=== PATIENT | male | born 1970 | race Caucasian/White ===

== ENCOUNTER 2016-03-07 07:37 | Emergency (ER) | payer OTHER ==
[2016-03-07 07:43] VITALS: BP 148/111; PULSE 85; TEMP 97.6; BMI 37.6
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
== END 2016-03-07 08:41 | disposition home or self-care (01) ==
LOC: SUPCPDRO 07:37 → JER 07:37 → JERFT 07:37
DX: K94.09 Other complications of colostomy (principal); I10 Essential (primary) hypertension; E11.9 Type 2 diabetes mellitus without complications; Z79.84 Long term (current) use of oral hypoglycemic drugs; I25.2 Old myocardial infarction; Z95.5 Presence of coronary angioplasty implant and graft; F43.10 Post-traumatic stress disorder, unspecified; F31.9 Bipolar disorder, unspecified
CPT/HCPCS: 99281-25

== ENCOUNTER 2016-07-15 06:50 | Emergency (ER) | payer OTHER ==
[2016-07-15 07:03] VITALS: BP 150/99; PULSE 111; TEMP 98; BMI 40.1
--- NOTE | 2016-07-15 07:35 | PDOC ---
History of Present Illness - General Chief Complaint: Constipation Stated Complaint: ABD PAIN Time Seen by Provider: 07/15/16 07:10 History Source: Patient Exam Limitations: No Limitations - History of Present Illness Initial Comments: 46 y/o M with PMH of DM, HTN, HLD, ventral hernia, irreversible colostomy s/p bowel perforation presents to ER with c/o constipation over the last 3 days. Pt has noticed over the last 3 days he has not had only minimal white mucus in his colostomy bag and no fecal matter. He has also not had any gas emptying into his colostomy bag as he usually does over these last 3 days as well. He has had no nausea or vomiting, and no loss of appetite. This morning (1 hour ago) he noticed the stoma of his colostomy (located over his existing hernia) protruding more than usual and opening has closed somewhat this morning with skin and prompted him to come to the ER. He now has pain around his ostomy site and at its worst was a 10/10 and is currently a 5/10. He denies fevers, chills, chest pain, sob, headache, peripheral swelling, recent travel, sick contacts. 1 week ago he was seen at [facility] and was found to have a "heart attack" and placed under observation but patient signed out AMA. Pt had appointment with form drafter yesterday which he missed because of his bowel issues. Currently pt has no chest pain, no pain with exertion, chest pressure, sob. PCP: Dr. Neisha Lafleur Pt is on parole and has stated he is not to be given any narcotics/controlled substances. Past History - Past Medical History Allergies/Adverse Reactions: Allergies Allergy/AdvReac Type Severity Reaction Status Date / Time shellfish derived Allergy Severe anaphylaxis Verified 03/07/16 07:40 Penicillins Allergy Verified 03/07/16 07:40 Home Medications: Ambulatory Orders Lisinopril [Prinivil] 20 mg PO DAILY 08/29/12 Metformin HCl [Riomet] 1,000 mg PO BID 08/29/12 Metoprolol Tartrate [Lopressor -] 25 mg PO DAILY 08/29/12 Atorvastatin Ca [Lipitor] 20 mg PO HS 07/15/16 Benztropine Mesylate [Cogentin -] 1 mg PO DAILY 07/15/16 Risperidone [Risperdal] 1 mg PO DAILY 07/15/16 Cardiac Disorders: Yes (AORTIC STENOSIS. mi x 2.) Diabetes: Yes GI Disorders: Yes (COLOSTOMY) HTN: Yes Psychiatric Problems: Yes (bipolar, ptsd.) - Surgical History Abdominal Surgery: Yes (COLOSTOMY) Cardiac Surgery: Yes (STENTS) GI Surgery: Yes - Immunization History Immunization Up to Date: Yes - Psycho/Social/Smoking Cessation Hx Anxiety: No Suicidal Ideation: No Smoking Status: No Smoking History: Never smoked Have you smoked in the past 12 months: No Number of Cigarettes Smoked Daily: 0 Information on smoking cessation initiated: No Hx Alcohol Use: No Drug/Substance Use Hx: No Substance Use Type: None Hx Substance Use Treatment: No Review of Systems - Review of Systems Able to Perform ROS?: Yes Comments:: CONSTITUTIONAL: Absent: fever, chills, diaphoresis, generalized weakness, loss of appetite HEENT: Absent: throat pain, throat swelling, difficulty swallowing, visual Changes CARDIOVASCULAR: Absent: chest pain, syncope, palpitations, irregular heart rate, peripheral edema RESPIRATORY: Absent: cough, shortness of breath, dyspnea with exertion, orthopnea GASTROINTESTINAL: +abdominal pain, abdominal distension at site of colostomy, constipation Absent: nausea, vomiting, diarrhea GENITOURINARY: +chronic hesitancy Absent: dysuria, frequency, urgency, flank pain, genital pain NEUROLOGIC: Absent: headache, dizziness, unsteady gait PSYCHIATRIC: Absent: anxiety, depression, suicidal or homicidal ideation, hallucinations. *Physical Exam - Vital Signs Last Vital Signs Temp Pulse Resp BP Pulse Ox 98.0 F 111 H 22 150/99 99 07/15/16 07:01 07/15/16 07:01 07/15/16 07:01 07/15/16 07:01 07/15/16 07:01 - Physical Exam Comments: GENERAL: Well developed, well nourished. Awake and alert. In no acute distress. HEENT: Normocephalic. EOMI. No conjunctival pallor. Sclera are non-icteric NECK: Supple. Full ROM. CARDIOVASCULAR: Regular rate and rhythm. No murmurs, rubs, or gallops. PULMONARY: No evidence of respiratory distress. Lungs clear to auscultation bilaterally. No wheezing, rales or rhonchi. ABDOMINAL: +obese, colostomy located in LLQ. Stoma is pink, no signs of necrosis. Skin around stoma pink, likely from irritation. +LLQ tenderness with palpation (in area around colostomy). No fecal matter in colostomy bag. Hypoactive bowel sounds. Pain with insertion of tumi syringe and pain with flushing of saline into stoma via syringe. Soft. No rebound or guarding. No organomegaly. MUSCULOSKELETAL No bony deformities or tenderness. No CVA tenderness. EXTREMITIES: No edema. No calf tenderness. SKIN: As described in abdominal exam above. Warm and dry. Normal capillary refill. No rashes. No jaundice. NEUROLOGICAL: Alert, awake, appropriate. PSYCHIATRIC: Cooperative. Good eye contact. Appropriate mood and affect. Heart Score/ECG Review - ECG Intrepretation Comment:: SInus tachycardia @ 106 bpm Septal infarct, age undetermined No ST segment changes QTc 435 ms ED Treatment Course - LABORATORY CBC & Chemistry Diagram: 07/15/16 07:41 07/15/16 07:41 Medical Decision Making - Medical Decision Making 07/15/16 07:49 Will work up patient for obstruction and stricture at this time. CBCD, CMP, abd/ pelvis ct with and without contrast (plus oral contrast ordered). Pain control with IV ofirmev 1g. Pt is on parole and has stated he is not to be given any narcotics/controlled substances. 07/15/16 10:02 Pt completed drinking oral contrast approximately 1 hour ago. At this time pt has had filling of colostomy with fecal matter, brown in color, with no gross blood seen. Pt states the stool was normal in consistency like it usually is at home. 07/15/16 10:22 Pt's pain has much improved s/p bowel movement. Pt's abdomen also non-tender, non-distended around area of ostomy now. Pt to be discharged and to see primary care physician. Pt also to f/u with colo- rectal surgeon for ostomy review and possible further management for revision. Pt will be given both Dr. Raza's and Dr. Robles's contact information. *DC/Admit/Observation/Transfer Diagnosis at time of Disposition: Impaction of intestine - Discharge Dispostion Disposition: HOME Condition at time of disposition: Stable Admit: No - Referrals Referrals: Neisha Lafleur MD [Primary Care Provider] - Terrence Raza MD [Staff Physician] - Daryn Wood MD [Staff Physician] - - Patient Instructions Printed Discharge Instructions: DI for Fecal Impaction, DI for Constipation, How to Care for Your Colostomy or Ileostomy Additional Instructions: You will need to follow up with your primary care physician after this emergency room visit. You will also need to see a surgeon to further evaluate your colostomy/ostomy and to check if further revision is necessary. You should call Dr. Raza and see if he is able to do so. If he is not, you can call Dr. Wood for further management of your colostomy. If you symptoms worsen, come back to the emergency room.
[2016-07-15 07:50] LABS: BASOPHIL 0.4 % (0-2.0); EOSINOPHIL 4.4 % (0-4.5); MCH 29.6 pg (25.7-33.7); MCHC 33.8 g/dl (32.0-35.9); MEAN CELL VOLUME 87.7 fl (80-96); MEAN PLT VOLUME 9.7 fl (7.5-11.1); NEUTROPHILS 55.6 % (42.8-82.8); PLATELET COUNT 163 K/MM3 (134-434); RDW 13.4 % (11.9-15.9)
[2016-07-15] MEDS ORDERED: SODIUM CHLORIDE 1,000 ML IV STA (07:53)
[2016-07-15] MEDS ORDERED: ACETAMINOPHEN 1000 MG/100 ML VIAL (NON FORMULARY) IVPB ONE (07:53)
[2016-07-15] MEDS ORDERED: ACETAMINOPHEN INJECTION 100 ML IVPB ONE (08:12)
[2016-07-15 08:18] LABS: ALBUMIN 3.7 g/dl (3.4-5.0); ALK PHOS 65 U/L (45-117); ANION GAP 10 (8-16); BILIRUBIN,TOTAL 0.6 mg/dL (0.2-1.0); CALCIUM 9.7 mg/dL (8.5-10.1); CO2 27 mmol/L (21-32); COCKROFT - GAULT 231.83; CREATININE 0.7 mg/dL (0.7-1.3); GLUCOSE,RANDOM 167 mg/dL (74-106); SGOT/AST 37 U/L (15-37); SGPT/ALT 38 U/L (12-78); TOT PROT 7.7 g/dl (6.4-8.2)
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
--- NOTE | 2016-07-16 16:33 | EKG ---
Test Reason : Blood Pressure : / mmHG Vent. Rate : 106 BPM Atrial Rate : 106 BPM P-R Int : 176 ms QRS Dur : 086 ms QT Int : 328 ms P-R-T Axes : 065 049 036 degrees QTc Int : 435 ms SINUS TACHYCARDIA SEPTAL INFARCT , AGE UNDETERMINED ABNORMAL ECG WHEN COMPARED WITH ECG OF 01-DEC-2013 09:33, NONSPECIFIC T WAVE ABNORMALITY HAS REPLACED INVERTED T WAVES IN INFERIOR LEADS Confirmed by HAYLEY OWEN, YADIEL ([id number]) on 07/16/2016 4:32:29 PM Referred By: Confirmed By:YADIEL HARDY MD
== END 2016-07-15 11:05 | disposition home or self-care (01) ==
LOC: JER 06:50
PROC: 3E033NZ Introduction of Analgesics, Hypnotics, Sedatives into Peripheral Vein, Percutaneous Approach (ICD-10-PCS; principal; 2016-07-15)
PROC: 3E0337Z Introduction of Electrolytic and Water Balance Substance into Peripheral Vein, Percutaneous Approach (ICD-10-PCS; 2016-07-15)
DX: K56.49 Other impaction of intestine (principal); Z93.3 Colostomy status; E11.9 Type 2 diabetes mellitus without complications; I10 Essential (primary) hypertension; F31.9 Bipolar disorder, unspecified; E78.5 Hyperlipidemia, unspecified; I25.2 Old myocardial infarction
CPT/HCPCS: 36415; 80053; 85025; 93005; 93010; 96361; 96374; 99282-25

== ENCOUNTER 2016-08-05 06:26 | Observation (INO) | payer OTHER ==
[2016-08-05 06:30] VITALS: BMI 41.5
--- NOTE | 2016-08-05 06:48 | PDOC ---
History of Present Illness - General Stated Complaint: CHEST PAIN Time Seen by Provider: 08/05/16 06:33 History Source: Patient Exam Limitations: No Limitations - History of Present Illness Initial Comments: 08/05/16 06:43 46-year-old male presents to the emergency room with complaints of chest pain since last night. Patient states initially pain was 10 out of 10 describing it as a chest tightness in the left side of his chest chest wall. Patient states pain has subsided to a 3 out of 10 he took a baby aspirin approximately an hour prior to arrival. Patient states history of CAD with PA back in 2011 along with 2 stents placed at that time. 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 patient states is followed by Dr. Langley for his hypertension, dyslipidemia and diabetes. Patient denies fever, chills, shortness of breath, cough, palpitations, dizziness, diaphoresis, abdominal pain, or nausea. Patient also with history of colostomy bag which he has no complaints of presently. Presenting Symptoms: Chest Pain Timing/Duration: reports: constant, changing over time (lessened since 11pm.) Severity/Quality: reports: mild, tightness Location: reports: substernal Chest Pain Radiation: reports: no radiation Activities at Onset: reports: none Prior Chest Pain/Cardiac Workup: reports: Cardiac Cath, Heart Attack Nitro Today/Relief: Yes: no nitro taken today Aspirin Received prior to arrival (Core Measure): Yes: 325 mg x 1, provided at home Associated Symptoms: Yes: Chest Pain/pressure Past History - Travel Traveled outside of the country in the last 30 days: No Close contact w/someone who was outside of country & ill: No - Past Medical History Allergies/Adverse Reactions: Allergies Allergy/AdvReac Type Severity Reaction Status Date / Time shellfish derived Allergy Severe anaphylaxis Verified 08/05/16 06:30 Iodine and Iodide Containing Allergy Verified 08/05/16 06:31 Produc Penicillins Allergy Verified 08/05/16 06:30 Home Medications: Ambulatory Orders Lisinopril [Prinivil] 20 mg PO DAILY 08/29/12 Metformin HCl [Riomet] 1,000 mg PO BID 08/29/12 Metoprolol Tartrate [Lopressor -] 25 mg PO DAILY 08/29/12 Atorvastatin Ca [Lipitor] 20 mg PO HS 07/15/16 Benztropine Mesylate [Cogentin -] 1 mg PO DAILY 07/15/16 Risperidone [Risperdal] 1 mg PO DAILY 07/15/16 Cardiac Disorders: Yes (AORTIC STENOSIS. mi x 2.) Diabetes: Yes GI Disorders: Yes (COLOSTOMY) HTN: Yes Psychiatric Problems: Yes (bipolar, ptsd.) - Surgical History Abdominal Surgery: Yes (COLOSTOMY) Cardiac Surgery: Yes (STENTS) GI Surgery: Yes - Immunization History Immunization Up to Date: Yes - Psycho/Social/Smoking Cessation Hx Anxiety: No Suicidal Ideation: No Smoking Status: No Smoking History: Former smoker Have you smoked in the past 12 months: No Number of Cigarettes Smoked Daily: 0 Information on smoking cessation initiated: No Hx Alcohol Use: No Drug/Substance Use Hx: No Substance Use Type: None Hx Substance Use Treatment: No Patient Lives Alone: No Lives with/in: spouse/[place] Cardiac Specific PMH - Complaint Specific PMHX Cardiac Stent: Yes Review of Systems - Review of Systems Able to Perform ROS?: Yes Constitutional: No: Symptoms Reported HEENTM: No: Symptoms Reported Respiratory: No: Symptoms reported Cardiac (ROS): Yes: Chest Tightness. No: Lightheadedness, Palpitations, Syncope ABD/GI: No: Symptoms Reported : No: Symptoms Reported Musculoskeletal: No: Symptoms Reported Integumentary: No: Symptoms Reported Neurological: No: Symptoms reported Endocrine: No: Symptoms Reported Hematologic/Lymphatic: No: Symptoms Reported *Physical Exam - Vital Signs Last Vital Signs Temp Pulse Resp BP Pulse Ox 107 H 20 174/107 97 08/05/16 06:28 08/05/16 06:28 08/05/16 06:28 08/05/16 06:28 - Physical Exam General Appearance: Yes: Nourished, Appropriately Dressed. No: Apparent Distress HEENT: positive: EOMI, SHIRLEY. negative: Pale Conjunctivae Respiratory/Chest: positive: Lungs Clear, Normal Breath Sounds. negative: Respiratory Distress, Accessory Muscle Use Cardiovascular: positive: Regular Rhythm, Regular Rate, Tachycardia. negative: Murmur Vascular Pulses: Dorsalis-Pedis (R): 2+, Doralis-Pedis (L): 2+ Gastrointestinal/Abdominal: positive: Soft, Other (llq colostomy bag present). negative: Tenderness Musculoskeletal: negative: CVA Tenderness Extremity: positive: Normal Capillary Refill. negative: Pedal Edema Integumentary: positive: Normal Color, Warm, Moist Neurologic: positive: Motor Strength 5/5 (ambulatory) Heart Score/ECG Review - History History: Slightly suspicious - Electrocardiogram EKG: Normal - Age Age: 45-65 - Risk Factors Risk Factors Heart Score: Yes Hx Hypercholesterolemia, Yes Hx Hypertension, Yes Hx Diabetes, Yes Smoking History Based on the list above the patient has:: >/=3 risk factors or Hx atherosclerotic disease - Troponin Troponin: </= normal limit - Score Heart Score - Total: 3 - ECG Intrepretation Rhythm: Regular Rhythm (rate 103, no ST elevation/depression noted) - ECG Impressions Tachycardia: Sinus ED Treatment Course - LABORATORY CBC & Chemistry Diagram: 08/05/16 06:55 08/05/16 06:55 - ADDITIONAL ORDERS Additional order review: Laboratory Results 08/05/16 08/05/16 08/05/16 06:55 06:55 06:55 INR 0.92 D-Dimer < 200 Sodium 139 Potassium 4.1 Chloride 100 Carbon Dioxide 28 Anion Gap 11 BUN 11 D Creatinine 0.7 Creat Clearance w eGFR > 60 Random Glucose 227 H D Calcium 9.7 Magnesium 1.6 L Total Bilirubin 0.5 AST 26 D ALT 31 Alkaline Phosphatase 63 Creatine Kinase 162 Creatine Kinase Index 1.0 CK-MB (CK-2) 1.632 CK-MB (CK-2) Rel Index Cancelled Troponin I < 0.02 B-Natriuretic Peptide < 5.00 L Total Protein 7.9 Albumin 3.7 08/05/16 06:55 RBC 4.69 MCV 87.9 MCHC 33.7 RDW 13.1 MPV 10.2 Neutrophils % 53.4 Lymphocytes % 31.6 Monocytes % 8.3 Eosinophils % 6.4 H Basophils % 0.3 - RADIOLOGY Radiology Studies Ordered: Category Date Time Status CHEST X-RAY PORTABLE* [RAD] Stat Radiology 08/05/16 06:40 Completed - Medications Given in the ED: ED Medications Discontinued Medications Generic Name Dose Route Start Last Admin Trade Name Freq PRN Reason Stop Dose Admin Magnesium Sulfate 1 gm 08/05/16 08:38 08/05/16 09:27 Magnesium Sulfate IVPB 08/05/16 08:39 1 gm ONCE ONE Administration Medical Decision Making - Medical Decision Making 08/05/16 06:46 Patient with complaint of chest tightness since last night at around 11 PM. Patient states the pain has subsided to a minimum and took 2 baby aspirin. Patient states takes his medication for his cholesterol hypertension and diabetes. Patient states history of PTSD and anxiety but denies any recent change in medication. On exam patient had no significant findings except for tachycardia at 103. Patient is concerning for ACS, PE. Patient ordered for cardiac workup including a d-dimer. patient received 2 baby aspirin prior to arrival. 08/05/16 09:00 Laboratory Tests 08/05/16 08/05/16 08/05/16 06:55 06:55 06:55 WBC 5.9 Hgb 13.9 Hct 41.2 Plt Count 164 Neutrophils % 53.4 INR 0.92 D-Dimer < 200 Sodium 139 Potassium 4.1 Chloride 100 Carbon Dioxide 28 Anion Gap 11 BUN 11 D Creatinine 0.7 Random Glucose 227 H D Calcium 9.7 Magnesium 1.6 L Total Bilirubin 0.5 AST 26 D ALT 31 Troponin I < 0.02 B-Natriuretic Peptide < 5.00 L Patient ordered for 1 g of magnesium. Call placed to Dr. Lafleur for admission. 08/05/16 09:29 Dr. Lafleur here for consultation. Patient will be admitted to telemetry. He is recommending Dr. Porter for cardiology. Consultation will be placed. Patient also be ordered for an echocardiogram. Patient currently states chest pain is subsided 08/05/16 09:[address] Hart over the phone and is aware of consultation. *DC/Admit/Observation/Transfer Diagnosis at time of Disposition: Chest tightness - Discharge Dispostion Admit: Yes Decision to Admit order Date/Time: Decision to Admit Order Category Date Time Status Decision to Admit to Hospital Routine Admission 08/05/16 09:30 Active - Referrals Referrals: Neisha Lafleur MD [Primary Care Provider] -
[2016-08-05 07:19] LABS: BASOPHIL 0.3 % (0-2.0); EOSINOPHIL 6.4 % (0-4.5); MCH 29.7 pg (25.7-33.7); MCHC 33.7 g/dl (32.0-35.9); MEAN CELL VOLUME 87.9 fl (80-96); MEAN PLT VOLUME 10.2 fl (7.5-11.1); NEUTROPHILS 53.4 % (42.8-82.8); PLATELET COUNT 164 K/MM3 (134-434); RDW 13.1 % (11.9-15.9); WHITE BLOOD COUNT 5.9 K/mm3 (4.0-10.0)
[2016-08-05 07:36] LABS: INR 0.92 (0.82-1.09)
[2016-08-05 07:40] LABS: ALBUMIN 3.7 g/dl (3.4-5.0); ANION GAP 11 (8-16); CALCIUM 9.7 mg/dL (8.5-10.1); CO2 28 mmol/L (21-32); CREATININE 0.7 mg/dL (0.7-1.3); D-DIMER < 200 ng/ml (<200-235); GLUCOSE,RANDOM 227 mg/dL (74-106); MAGNESIUM 1.6 mg/dL (1.8-2.4); SGOT/AST 26 U/L (15-37); SGPT/ALT 31 U/L (12-78)
[2016-08-05 07:44] LABS: ALK PHOS 63 U/L (45-117); BILIRUBIN,TOTAL 0.5 mg/dL (0.2-1.0); TOT PROT 7.9 g/dl (6.4-8.2); TROPONIN I < 0.02 ng/ml (0.00-0.05)
--- NOTE | 2016-08-05 08:16 | PDOC ---
*Physical Exam - Vital Signs Last Vital Signs Temp Pulse Resp BP Pulse Ox 107 H 20 174/107 97 08/05/16 06:28 08/05/16 06:28 08/05/16 06:28 08/05/16 06:28 - Physical Exam General Appearance: Yes: Nourished HEENT: positive: Normal Voice Neck: positive: Trachea midline Respiratory/Chest: positive: Lungs Clear, Normal Breath Sounds. negative: Chest Tender, Respiratory Distress Cardiovascular: positive: Regular Rhythm, Regular Rate, S1, S2. negative: Edema , JVD Vascular Pulses: Dorsalis-Pedis (R): 2+, Doralis-Pedis (L): 2+ Gastrointestinal/Abdominal: positive: Normal Bowel Sounds, Flat, Soft. negative : Tender Musculoskeletal: positive: Normal Inspection. negative: CVA Tenderness Extremity: positive: Normal Capillary Refill, Normal Inspection, Normal Range of Motion Integumentary: positive: Normal Color, Dry, Warm Neurologic: positive: Fully Oriented, Alert, Normal Mood/Affect, Normal Response Heart Score/ECG Review #1 ECG reviewed & interpreted by me at: 07:00 General ECG Interpretation: Sinus Rhythm, Normal Rate (103 sinus tachy), Normal Intervals, No acute ischemic changes - ECG Intrepretation Rhythm: Regular Rhythm - [place]: Normal ED Treatment Course - LABORATORY CBC & Chemistry Diagram: 08/05/16 06:55 08/05/16 06:55 - ADDITIONAL ORDERS Additional order review: Laboratory Results 08/05/16 08/05/16 06:55 06:55 Sodium 139 Potassium 4.1 Chloride 100 Carbon Dioxide 28 Anion Gap 11 BUN 11 D Creatinine 0.7 Creat Clearance w eGFR > 60 Random Glucose 227 H D Calcium 9.7 Magnesium 1.6 L Total Bilirubin 0.5 AST 26 D ALT 31 Alkaline Phosphatase 63 Creatine Kinase 162 CK-MB (CK-2) Rel Index Cancelled Troponin I < 0.02 B-Natriuretic Peptide < 5.00 L Total Protein 7.9 Albumin 3.7 08/05/16 06:55 RBC 4.69 MCV 87.9 MCHC 33.7 RDW 13.1 MPV 10.2 Neutrophils % 53.4 Lymphocytes % 31.6 Monocytes % 8.3 Eosinophils % 6.4 H Basophils % 0.3 Medical Decision Making - Medical Decision Making 08/05/16 08:11 46 yo M with h/o HTN DM CAD stents most recent stress 2011 here wtih c/o chest pain. did not have chest pain with prior MA. today has substernal, left sided chest pain. not pleuritic no assoc leg swelling, no f/c no cough. no h/o pe or dvt. took two asa prior to arrival. pt states pain improved. on exam awake alert lungs clear heart RRR no mr/g/. abd soft NT. ext WWP no edema. pulses symmetric plan: ro ACS, PE, cxr ekg [facility] admit to tele r/o acs will d/w dr boyce pt seen and examined, and plan discussed with caring ORLIN Mckinney, agree with her plan. *DC/Admit/Observation/Transfer - Referrals Referrals: Neisha Lafleur MD [Primary Care Provider] -
[2016-08-05] MEDS ORDERED: MAGNESIUM SULF 50% (8.12 MEQ/2 ML-1 GM VIAL) IVPB ONE (08:38)
[2016-08-05] MEDS ORDERED: MAGNESIUM SULF 50% (8.12 MEQ/2 ML-1 GM VIAL) ONE (09:17)
--- NOTE | 2016-08-05 09:55 | CON.CARD ---
Consult Consult Specialty:: Cardiology Referred by:: Neisha Lafleur MD Reason for Consultation:: Chest pain - History of Present Illness Chief Complaint: Chest pain History of Present Illness: 46-year-old male h/o HTN, chol, DM. schizophrenia, CAD s/p OR, PCI (stent), angina pectoris, post-colostomy bad presents to the emergency room with complaints of left-sided chest pain without associated dyspnea, palpitations, near or true syncope, orthopnea, PND or LE edema, f/u has been interrupted by episodes of incarceration. - History Source History Provided By: Patient Limitations to Obtaining History: No Limitations - Past Medical History Cardio/Vascular: Yes: CAD, HTN, Hyperlipdemia, OR Endocrine: Yes: Diabetes Mellitus - Past Surgical History Past Surgical History: Yes: Stent - Alcohol/Substance Use Hx Alcohol Use: No - Smoking History Smoking history: Former smoker Have you smoked in the past 12 months: No Aproximately how many cigarettes per day: 0 Home Medications - Allergies Allergies/Adverse Reactions: Allergies Allergy/AdvReac Type Severity Reaction Status Date / Time shellfish derived Allergy Severe anaphylaxis Verified 08/05/16 06:30 Iodine and Iodide Containing Allergy Verified 08/05/16 06:31 Produc Penicillins Allergy Verified 08/05/16 06:30 - Home Medications Home Medications: Ambulatory Orders Lisinopril [Prinivil] 20 mg PO DAILY 08/29/12 Metformin HCl [Riomet] 1,000 mg PO BID 08/29/12 Metoprolol Tartrate [Lopressor -] 25 mg PO DAILY 08/29/12 Atorvastatin Ca [Lipitor] 20 mg PO HS 07/15/16 Benztropine Mesylate [Cogentin -] 1 mg PO DAILY 07/15/16 Risperidone [Risperdal] 1 mg PO DAILY 07/15/16 Review of Systems - Review of Systems Cardiovascular: reports: Chest Pain Vital Signs: Vital Signs Temperature Pulse Rate 107 H 08/05/16 06:28 Respiratory Rate 20 08/05/16 06:28 Blood Pressure 174/107 08/05/16 06:28 O2 Sat by Pulse Oximetry (%) 97 08/05/16 06:28 Constitutional: Yes: No Distress, Calm Neck: Yes: Supple Respiratory: Yes: Regular, CTA Bilaterally Gastrointestinal: Yes: Normal Bowel Sounds, Soft Cardiovascular: Yes: Regular Rate and Rhythm JVD: No Carotid Bruit: No Heart Sounds: Yes: S1, S2 Edema: No - Other Data Labs, Other Data: CBC, BMP 08/05/16 06:55 08/05/16 06:55 INR, PTT INR 0.92 (0.82-1.09) 08/05/16 06:55 Troponin, BNP 08/05/16 06:55 Troponin I < 0.02 B-Natriuretic Peptide < 5.00 L Troponin, BNP 08/05/16 06:55 Troponin I < 0.02 B-Natriuretic Peptide < 5.[address] @ 103 [facility] Imaging - Results Chest X-ray: Report Reviewed (NAD) Problem List - Problems (1) Chest tightness Code(s): R07.89 - OTHER CHEST PAIN (2) Hypertension Code(s): I10 - ESSENTIAL (PRIMARY) HYPERTENSION Qualifiers: Hypertension type: essential hypertension Qualified Code(s): I10 - Essential (primary) hypertension (3) Coronary artery disease Code(s): I25.10 - ATHSCL HEART DISEASE OF [place] CORONARY ARTERY W/O ANG PCTRS Qualifiers: Coronary Disease-Associated Artery/Lesion type: [place] artery [place] vs. transplanted heart: [place] heart Associated angina: without angina Qualified Code(s): I25.10 - Atherosclerotic heart disease of [place] coronary artery without angina pectoris (4) S/P coronary artery stent placement Code(s): Z95.5 - PRESENCE OF CORONARY ANGIOPLASTY IMPLANT AND GRAFT (5) Old myocardial infarction Code(s): I25.2 - OLD MYOCARDIAL INFARCTION (6) Hyperlipidemia Code(s): E78.5 - HYPERLIPIDEMIA, UNSPECIFIED Qualifiers: Hyperlipidemia type: pure hypercholesterolemia Qualified Code(s): E78.00 - Pure hypercholesterolemia, unspecified; E78.0 - Pure hypercholesterolemia (7) Diabetes mellitus Code(s): E11.9 - TYPE 2 DIABETES MELLITUS WITHOUT COMPLICATIONS Qualifiers: Diabetes mellitus type: type 2 (8) S/P colostomy Code(s): Z93.3 - COLOSTOMY STATUS Assessment/Plan A: Chest pain syndrome with underlying h/o CAD s/p PCI (stent), angina pectoris 2. HTN/HCVD 3. Hyperlipidemia 4. Type 2 DM 5. Schizophrenia P:1. Ruling out for OR, check TSH, lipid, Ha1c 2. Echocardiogram to assess ventricular and valve function, nuc stress to r/o ischemia 3. Continue lisinopril 20 qd, Toprol XL 25 qd, Lipitor 20 qhs, ASA 81 qd with uptitration has hemodynamics tolerate 4. Further recommendations to follow pending above study results, thank you for consultative opportunity
[2016-08-05 11:41] LABS: URINE APPEARANCE CLEAR; URINE BILIRUBIN NEGATIVE (NEGATIVE); URINE COLOR YELLOW; URINE GLUCOSE (UA) 3+ (NEGATIVE); URINE KETONE TRACE (NEGATIVE); URINE LEUK ESTERASE NEGATIVE (NEGATIVE); URINE NITRITE NEGATIVE (NEGATIVE); URINE UROBILINOGEN NEGATIVE E.U./dl (0.2-1.0)
[2016-08-05 11:42] LABS: URINE BLOOD 1+ (NEGATIVE); URINE PROTEIN 1+ (NEGATIVE)
[2016-08-05 11:44] LABS: CALCIUM OXALATE CRYSTALS MODERATE /hpf (NONE SEEN); URINE MUCUS RARE; URINE RBC 2 /hpf (0-3); URINE WBC 7 /hpf (3-5)
[2016-08-05 12:09] LABS: TROPONIN I < 0.02 ng/ml (0.00-0.05)
--- NOTE | 2016-08-05 13:34 | EKG ---
Test Reason : Blood Pressure : / mmHG Vent. Rate : 103 BPM Atrial Rate : 103 BPM P-R Int : 182 ms QRS Dur : 080 ms QT Int : 322 ms P-R-T Axes : 069 054 010 degrees QTc Int : 421 ms SINUS TACHYCARDIA ANTEROSEPTAL INFARCT (CITED ON OR BEFORE 15-JUL-2016) ABNORMAL ECG WHEN COMPARED WITH ECG OF 15-JUL-2016 07:36, NO SIGNIFICANT CHANGE WAS FOUND Confirmed by PEARL WHALEY MD ([id number]) on 08/05/2016 1:34:25 PM Referred By: Confirmed By:PEARL WHALEY MD
[2016-08-05] MEDS: METOPROLOL SUCCINATE 25 MG TAB.SR.24H (FP) PO SCH (15:07)
[2016-08-05] MEDS: LISINOPRIL 20 MG TABLET (FP) PO SCH (15:07)
[2016-08-05] MEDS ORDERED: ATORVASTATIN CA 20 MG TABLET (FP) PO SCH (22:00)
[2016-08-06] MEDS: ASPIRIN 81 MG CHEWABLE TABLETS PO SCH ×2 (09:34→13:04)
[2016-08-06] MEDS: LISINOPRIL 20 MG TABLET (FP) PO SCH ×2 (09:35→13:06)
[2016-08-06] MEDS: METOPROLOL SUCCINATE 25 MG TAB.SR.24H (FP) PO SCH ×2 (09:35→13:04)
--- NOTE | 2016-08-06 10:23 | PN ---
Progress Note, Physician - Current Medication List Current Medications: Active Medications Aspirin (Asa -) 81 mg PO DAILY [facility] Last Admin: 08/06/16 09:34 Dose: Not Given Atorvastatin Calcium (Lipitor -) 20 mg PO HS [facility] Last Admin: 08/05/16 21:37 Dose: 20 mg Lisinopril (Prinivil) 20 mg PO DAILY [facility] Last Admin: 08/06/16 09:35 Dose: Not Given Metoprolol Succinate (Toprol Xl -) 25 mg PO DAILY [facility] Last Admin: 08/06/16 09:35 Dose: Not Given - Objective Vital Signs: Vital Signs Temperature 97 F L 08/06/16 06:00 Pulse Rate 68 08/06/16 06:00 Respiratory Rate 20 08/06/16 06:00 Blood Pressure 119/80 08/06/16 06:00 O2 Sat by Pulse Oximetry (%) 99 08/05/16 21:00 Labs: INR, PTT INR 0.92 (0.82-1.09) 08/05/16 06:55
[2016-08-06] MEDS ORDERED: BENZTROPINE MESYLATE 1 MG TABLET (FP) PO SCH (11:00)
[2016-08-06] MEDS ORDERED: risperiDONE 1 MG TABLET (FP) PO SCH (11:00)
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
[2016-08-06 15:13] VITALS: BP 133/100; PULSE 112; TEMP 98.6
== END 2016-08-06 17:01 | disposition home or self-care (01) ==
LOC: JER 06:26 → JERBED 09:30 → UNDOADMOB 09:30 → JERBED 16:50 → J4W 16:50 → INTOOBSV 08-06 09:39 → OBSVTOIN 08-06 09:39 → JERBED 08-06 10:00 → J4W 08-06 10:00
PROVIDERS: ADMIT Internal Medicine; ATTEND Internal Medicine
DX: R07.89 Other chest pain (principal); I10 Essential (primary) hypertension; I25.10 Atherosclerotic heart disease of native coronary artery without angina pectoris; I25.2 Old myocardial infarction; I35.0 Nonrheumatic aortic (valve) stenosis; E78.5 Hyperlipidemia, unspecified; E11.9 Type 2 diabetes mellitus without complications; F31.9 Bipolar disorder, unspecified; F43.10 Post-traumatic stress disorder, unspecified; Z95.5 Presence of coronary angioplasty implant and graft; Z87.891 Personal history of nicotine dependence; Z88.0 Allergy status to penicillin; Z91.013 Allergy to seafood; Z91.048 Other nonmedicinal substance allergy status; Z79.84 Long term (current) use of oral hypoglycemic drugs; Z93.3 Colostomy status; Z79.82 Long term (current) use of aspirin
CPT/HCPCS: 36415; 71010-TC; 78452-TC; 80053; 81003; 81015; 82550; 82553; 83036; 83735; 83880; 84484; 85025; 85379; 85610; 93005; 93010; 93017; 93306-TC; 99285-25; A9502; G0378; J2794

== ENCOUNTER 2016-12-07 11:57 | Emergency (ER) | payer BC, OTHER ==
[2016-12-07 12:02] VITALS: BP 137/100; PULSE 100; TEMP 98; BMI 42.8
== END 2016-12-07 13:38 | disposition left against medical advice (07) ==
LOC: JERFT 11:57
DX: Z53.21 Procedure and treatment not carried out due to patient leaving prior to being seen by health care provider (principal)
CPT/HCPCS: 99281-25

== ENCOUNTER 2016-12-07 12:35 | Emergency (ER) | payer BC, OTHER ==
[2016-12-07 12:53] VITALS: BP 148/108; PULSE 100; TEMP 98.3; BMI 42.8
--- NOTE | 2016-12-07 12:58 | PDOC ---
History of Present Illness - General Chief Complaint: Eye Problem Stated Complaint: POSSIBLE PINKY EYE PER PT Time Seen by Provider: 12/07/16 12:47 - History of Present Illness Initial Comments: 12/07/16 12:52 Chief complaint: Red eye History of present illness: This is a 46-year-old gentleman past medical history significant for CAD hypertension diabetes who presents to the emergency department today history of bilateral eye redness and discharge. This morning woke up with crusty pus from left eye. Complaining of some mild pain to the side of his face symptoms are mild to moderate persistent constant no exacerbating or alleviating factors Past History - Travel Traveled outside of the country in the last 30 days: No Close contact w/someone who was outside of country & ill: No - Past Medical History Allergies/Adverse Reactions: Allergies Allergy/AdvReac Type Severity Reaction Status Date / Time Iodine and Iodide Containing Allergy Severe Difficulty Verified 12/07/16 12:38 Produc Breathing Penicillins Allergy Severe Difficulty Verified 12/07/16 12:38 Breathing shellfish derived Allergy Severe anaphylaxis Verified 12/07/16 12:38 Home Medications: Ambulatory Orders Lisinopril [Prinivil] 30 mg PO DAILY 08/29/12 Metformin HCl [Riomet] 1,000 mg PO BID 08/29/12 Metoprolol Tartrate [Lopressor -] 25 mg PO DAILY 08/29/12 Atorvastatin Ca [Lipitor] 20 mg PO HS 07/15/16 Benztropine Mesylate [Cogentin -] 1 mg PO DAILY 07/15/16 Risperidone [Risperdal] 1 mg PO DAILY 07/15/16 Clindamycin [Cleocin -] 300 mg PO Q6HPO #28 capsule 12/07/16 Divalproex Sodium [Depakote] 500 mg PO DAILY 12/07/16 Cardiac Disorders: Yes (Anteroseptal Infarct, CAD, PCI, Stents, Angina pectoris) Diabetes: Yes GI Disorders: Yes (Colostomy) HTN: Yes Hypercholesterolemia: Yes Psychiatric Problems: Yes (bipolar, ptsd.) - Surgical History Abdominal Surgery: Yes (Colostomy) Cardiac Surgery: Yes (Stents) GI Surgery: Yes - Immunization History Immunization Up to Date: Yes - Suicide/Smoking/Psychosocial Hx Smoking Status: No Smoking History: Former smoker Have you smoked in the past 12 months: No Number of Cigarettes Smoked Daily: 0 Hx Alcohol Use: No Drug/Substance Use Hx: No Substance Use Type: None Hx Substance Use Treatment: No Review of Systems - Review of Systems Comments:: 12/07/16 12:53 ROS: A complete review of 10 out of 10 review of systems is taken and is negative apart from what is previously mentioned below and in the HPI. *Physical Exam - Physical Exam Comments: 12/07/16 12:56 Vitals: Triage Vital signs reviewed General Appearance: no acute distress, well nourished well developed, Head: Atraumatic, Eyes: Pupils equal reactive round, extraocular movement intact bilateral eye crusting, bilateral conjunctival injection, redness and swelling inferior left eyelid Nose: Nares patent bilaterally;no nasal congestion Throat: Posterior oropharynx without erythema, mucous membranes moist, Neck: Supple;No Nucal rigidity Chest Wall: Nontender Cardiac: Regular rate and rhythym, no murmurs, no rubs, no gallops, Lungs: Clear to auscultation bilateral, good air movement bilaterally, Abdomen: Soft, non distended, normal bowel sounds, non tender to palpation Extremities: Full range of motion to all extremities, no cyanosis, clubbing, or edema Skin: Warm and dry, no rashes or lesions, no rash, no petechiae 12/07/16 17:26 Medical Decision Making - Medical Decision Making 12/07/16 17:25 Well-appearing no apparent distress history and examination consistent with most likely viral conjunctivitis however given crusting and slight swelling below lower eyelid we'll place patient on oral antibiotic in addition to the Polytrim eyedrops which patient Redi has Very low suspicion for orbital cellulitis given patient well-appearing no pain with extraocular movements. He will follow up with ophthalmology this week and return to the ED for any severe worsening symptoms or for any concerns. *DC/Admit/Observation/Transfer Diagnosis at time of Disposition: Conjunctivitis - Discharge Dispostion Disposition: HOME Condition at time of disposition: Stable Admit: No - Prescriptions Prescriptions: Clindamycin [Cleocin -] 300 mg PO Q6HPO #28 capsule - Referrals Referrals: Nba Mabry MD [Staff Physician] - - Patient Instructions Printed Discharge Instructions: Conjunctivitis Additional Instructions: Apply warm compresses to left eye 20 minutes on 20 minutes off. Continue Polytrim eye drop 4 times a day to both eyes. Clindamycin as prescribed. Follow- up with opthalmology in 1-2 days. Return to the emergency department immediately for any severe worsening swelling any change in vision blurry vision double vision pain with vision fever if you feel very ill or for any concerns.
[2016-12-07] MEDS ORDERED: CLINDAMYCIN HCL 300 MG CAPSULE PO ONE (13:00)
== END 2016-12-07 13:51 | disposition home or self-care (01) ==
LOC: FER 12:35
DX: H10.9 Unspecified conjunctivitis (principal); E11.9 Type 2 diabetes mellitus without complications; I10 Essential (primary) hypertension; I25.10 Atherosclerotic heart disease of native coronary artery without angina pectoris; F31.9 Bipolar disorder, unspecified; Z95.5 Presence of coronary angioplasty implant and graft; Z87.891 Personal history of nicotine dependence
CPT/HCPCS: 99281-25

== ENCOUNTER 2017-02-17 10:11 | Emergency (ER) | payer BC, OTHER ==
[2017-02-17 10:15] VITALS: BMI 42.8
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
[2017-02-17 10:35] VITALS: TEMP 97.6
[2017-02-17] MEDS ORDERED: HEMOQUE TEST 1 EACH EACH ONE (10:40)
[2017-02-17 10:50] VITALS: BP 156/116; PULSE 90
== END 2017-02-17 10:52 | disposition home or self-care (01) ==
LOC: FER 10:11
DX: H10.13 Acute atopic conjunctivitis, bilateral (principal); Z95.5 Presence of coronary angioplasty implant and graft; E78.00 Pure hypercholesterolemia, unspecified; F43.10 Post-traumatic stress disorder, unspecified; E11.9 Type 2 diabetes mellitus without complications
CPT/HCPCS: 99282-25

== ENCOUNTER 2018-06-11 15:01 | Emergency (ER) | payer BC ==
[2018-06-11 15:11] VITALS: BP 155/92; PULSE 120; TEMP 97.9; BMI 42.3
[2018-06-11] MEDS ORDERED: SODIUM CHLORIDE 0.9% 1000 ML INFUS.BAG IV ONE (17:08)
[2018-06-11] MEDS ORDERED: DIPHTH,PERTUSS(ACELL),TET 0.5 ML DISP.SYRIN IM ONE ×2 (17:31→17:36)
[2018-06-11] MEDS ORDERED: CLINDAMYCIN HCL 300 MG CAPSULE PO ONE (17:31)
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
[2018-06-11] MEDS ORDERED: CLINDAMYCIN HCL 150 MG CAPSULE (FP) ONE (17:35)
== END 2018-06-11 18:02 | disposition home or self-care (01) ==
LOC: JER 15:01
PROC: 3E0234Z Introduction of Serum, Toxoid and Vaccine into Muscle, Percutaneous Approach (ICD-10-PCS; principal; 2018-06-11)
DX: S91.201A Unspecified open wound of right great toe with damage to nail, initial encounter (principal); W22.8XXA Striking against or struck by other objects, initial encounter; Y93.89 Activity, other specified; Y92.89 Other specified places as the place of occurrence of the external cause; Y99.8 Other external cause status; I25.119 Atherosclerotic heart disease of native coronary artery with unspecified angina pectoris; I10 Essential (primary) hypertension; Z95.5 Presence of coronary angioplasty implant and graft; Z72.0 Tobacco use; E78.00 Pure hypercholesterolemia, unspecified; F31.9 Bipolar disorder, unspecified; F43.10 Post-traumatic stress disorder, unspecified; Z93.3 Colostomy status; Z91.041 Radiographic dye allergy status; Z88.0 Allergy status to penicillin; Z91.013 Allergy to seafood
CPT/HCPCS: 90471; 90715; 99282-25

== ENCOUNTER 2021-10-12 01:59 | Observation (INO) | payer BC, OTHER ==
[2021-10-12 02:14] VITALS: BMI 36.9
[2021-10-12] MEDS ORDERED: ASPIRIN 81 MG CHEWABLE TABLETS PO ONE (02:44)
[2021-10-12] MEDS ORDERED: ASPIRIN 81 MG CHEWABLE TABLETS ONE ×2 (02:47→10:00)
[2021-10-12 03:09] LABS: INR 0.94 (0.83-1.09); PROTHROMBIN TIME (PATIENT) 10.8 SEC (9.7-13.0)
[2021-10-12 03:14] LABS: CALCIUM 9.4 mg/dL (8.5-10.1)
[2021-10-12 03:15] LABS: ALBUMIN 3.4 g/dl (3.4-5.0); BLOOD UREA NITROGEN 11.9 mg/dL (7-18)
[2021-10-12 03:17] LABS: EOS % 1.5 % (0-4.5); HEMATOCRIT 45.7 % (35.4-49); HEMOGLOBIN 15.2 GM/dL (11.7-16.9); LYMPH % 27.9 % (8-40); MCH 29.3 pg (25.7-33.7); MCHC 33.2 g/dl (32.0-35.9); MEAN CELL VOLUME 88.3 fl (80-96); MONO % 6.6 % (3.8-10.2); PLATELET COUNT 210 10^3/uL (134-434); RBC 5.17 M/mm3 (4.00-5.60); RDW 14.3 % (11.9-15.9)
[2021-10-12 03:19] LABS: BILIRUBIN,TOTAL 1.1 mg/dL (0.2-1); TOT PROT 7.6 g/dl (6.4-8.2)
[2021-10-12 04:52] LABS: HIV INTERPRETATION NEGATIVE (NEGATIVE)
[2021-10-12] MEDS ORDERED: DIVALPROEX SODIUM 500 MG TABLET E.C. ONE (09:59)
[2021-10-12] MEDS ORDERED: metoPROLOL SUCCINATE 25 MG TAB.SR.24H (FP) PO ONE (10:00)
[2021-10-12] MEDS ORDERED: risperiDONE 0.5 MG TABLET ONE ×2 (10:00→10:15)
[2021-10-12] MEDS ORDERED: LISINOPRIL 10 MG TABLET ONE (10:00)
[2021-10-12] MEDS: BENZTROPINE MESYLATE 1 MG TABLET PO SCH (10:12)
[2021-10-12] MEDS: DIVALPROEX SODIUM 500 MG TABLET E.C. PO SCH (10:13)
[2021-10-12] MEDS: metoPROLOL SUCCINATE 25 MG TAB.SR.24H (FP) PO SCH (10:13)
[2021-10-12] MEDS: risperiDONE 0.5 MG TABLET PO SCH (10:13)
[2021-10-12] MEDS: LISINOPRIL 10 MG TABLET PO SCH (10:13)
[2021-10-12] MEDS: INSULIN (NOVOLOG) ASPART 100 UNITS/ML 10ML VIAL SQ SCH ×2 (12:50→18:38)
[2021-10-12] MEDS ORDERED: metFORMIN HCL 500 MG TABLET (FP) ONE (18:34)
[2021-10-12] MEDS: metFORMIN HCL 500 MG TABLET (FP) PO SCH (18:36)
[2021-10-12] MEDS ORDERED: ATORVASTATIN CA 20 MG TABLET (FP) PO SCH (22:00)
[2021-10-12] MEDS ORDERED: ATORVASTATIN CA 20 MG TABLET (FP) ONE (22:25)
[2021-10-12] MEDS ORDERED: HEPARIN NA (PORCINE) 5,000 UNITS/ML 1ML VIAL ONE (22:25)
[2021-10-12] MEDS: HEPARIN NA (PORCINE) 5,000 UNITS/ML 1ML VIAL SQ SCH (22:32)
[2021-10-13 06:59] LABS: CALCIUM 8.7 mg/dL (8.5-10.1)
[2021-10-13 07:00] LABS: ALBUMIN 3.1 g/dl (3.4-5.0); BLOOD UREA NITROGEN 10.9 mg/dL (7-18)
[2021-10-13 07:03] LABS: BILIRUBIN,TOTAL 1.2 mg/dL (0.2-1); CREATININE 0.5 mg/dL (0.55-1.3); TOT PROT 6.4 g/dl (6.4-8.2)
[2021-10-13 07:10] LABS: BASO % 0.5 % (0-2.0); EOS % 2.5 % (0-4.5); HEMATOCRIT 44.5 % (35.4-49); HEMOGLOBIN 14.4 GM/dL (11.7-16.9); LYMPH % 31.9 % (8-40); MCH 28.5 pg (25.7-33.7); MCHC 32.2 g/dl (32.0-35.9); MEAN CELL VOLUME 88.5 fl (80-96); MEAN PLT VOLUME 10.4 fl (7.5-11.1); MONO % 5.9 % (3.8-10.2); NEUT % 59.2 % (42.8-82.8); PLATELET COUNT 185 10^3/uL (134-434); RBC 5.03 M/mm3 (4.00-5.60); RDW 13.6 % (11.9-15.9); WHITE BLOOD COUNT 6.4 K/mm3 (4.0-10.0)
[2021-10-13] MEDS ORDERED: metFORMIN HCL 500 MG TABLET (FP) ONE (07:58)
[2021-10-13] MEDS: INSULIN (NOVOLOG) ASPART 100 UNITS/ML 10ML VIAL SQ SCH ×2 (08:00→14:00)
[2021-10-13] MEDS: metFORMIN HCL 500 MG TABLET (FP) PO SCH (08:00)
[2021-10-13] MEDS ORDERED: ASPIRIN COATED 81 MG TABLET.EC PO SCH (10:00)
[2021-10-13] MEDS ORDERED: metoPROLOL SUCCINATE 25 MG TAB.SR.24H (FP) PO SCH (10:10)
[2021-10-13] MEDS ORDERED: LISINOPRIL 10 MG TABLET ONE (10:28)
[2021-10-13] MEDS ORDERED: risperiDONE 0.5 MG TABLET ONE (10:28)
[2021-10-13] MEDS ORDERED: ASPIRIN COATED 81 MG TABLET.EC ONE (10:28)
[2021-10-13] MEDS ORDERED: metoPROLOL SUCCINATE 25 MG TAB.SR.24H (FP) PO ONE (10:28)
[2021-10-13] MEDS ORDERED: HEPARIN NA (PORCINE) 5,000 UNITS/ML 1ML VIAL ONE (10:29)
[2021-10-13] MEDS ORDERED: DIVALPROEX SODIUM 500 MG TABLET E.C. ONE (10:33)
[2021-10-13] MEDS: DIVALPROEX SODIUM 500 MG TABLET E.C. PO SCH (10:46)
[2021-10-13] MEDS: LISINOPRIL 10 MG TABLET PO SCH (10:46)
[2021-10-13] MEDS: BENZTROPINE MESYLATE 1 MG TABLET PO SCH (10:46)
[2021-10-13] MEDS: risperiDONE 0.5 MG TABLET PO SCH (10:47)
[2021-10-13] MEDS: metoPROLOL SUCCINATE 25 MG TAB.SR.24H (FP) PO SCH (10:47)
[2021-10-13] MEDS: HEPARIN NA (PORCINE) 5,000 UNITS/ML 1ML VIAL SQ SCH (10:47)
[2021-10-13 11:42] LABS: MAGNESIUM 1.6 mg/dL (1.8-2.4)
[2021-10-13 11:45] LABS: PHOSPHOROUS 3.2 mg/dL (2.5-4.9)
[2021-10-13 11:53] LABS: N-TERMINAL BNP 5.4 pg/ml (5-125)
[2021-10-13] MEDS ORDERED: NAPHAZOLINE/PHENIRAMINE OPHTHALMIC 15 ML BOTTLE OU SCH (14:00)
[2021-10-13 14:21] VITALS: RESP 16
[2021-10-13 14:23] VITALS: BP 147/85; PULSE 100; TEMP 97
== END 2021-10-13 13:30 | disposition home or self-care (01) ==
LOC: JER 01:59 → INTOOBSV 06:03 → JERBED 06:03
PROVIDERS: ADMIT Internal Medicine; ATTEND Internal Medicine
PROC: 3E023GC Introduction of Other Therapeutic Substance into Muscle, Percutaneous Approach (ICD-10-PCS; principal; 2021-10-12)
PROC: 3E013VG Introduction of Insulin into Subcutaneous Tissue, Percutaneous Approach (ICD-10-PCS; 2021-10-12)
DX: I25.119 Atherosclerotic heart disease of native coronary artery with unspecified angina pectoris (principal); R55 Syncope and collapse; I50.9 Heart failure, unspecified; I11.0 Hypertensive heart disease with heart failure; R42 Dizziness and giddiness; Z91.041 Radiographic dye allergy status; Z88.0 Allergy status to penicillin; Z91.013 Allergy to seafood
CPT/HCPCS: 36415; 71045-TC-FY; 80053; 80061; 82550; 82553; 82962; 83036; 83735; 83880; 84100; 84484; 85025; 85610; 85730; 87389; 93005; 93010; 96372; 99285-25; C9803-CS; G0378; J1644; U0003; U0005

== ENCOUNTER 2021-10-18 14:54 | Emergency (ER) | payer OTHER ==
[2021-10-18 15:13] VITALS: TEMP 97.6; BMI 36.9
[2021-10-18 16:08] VITALS: BP 167/113
[2021-10-18 16:21] VITALS: PULSE 98; RESP 17
== END 2021-10-18 17:15 | disposition home or self-care (01) ==
LOC: JER 14:54
DX: Z43.3 Encounter for attention to colostomy (principal)
CPT/HCPCS: 82962; 93005; 93010; 99284-25

== ENCOUNTER 2021-10-22 23:22 | Emergency (ER) | payer OTHER ==
[2021-10-22 23:26] VITALS: BP 131/92; PULSE 95; RESP 17; TEMP 98.1; BMI 36.9
== END 2021-10-23 00:30 | disposition left against medical advice (07) ==
LOC: JER 23:22
DX: R07.9 Chest pain, unspecified (principal)
CPT/HCPCS: 93005; 93010; 99284-25

== ENCOUNTER 2022-05-14 14:59 | Inpatient (IN) | payer OTHER ==
[2022-05-14 17:17] LABS: BASO % 0.3 % (0-2.0); EOS % 1.7 % (0-4.5); HEMATOCRIT 38.8 % (35.4-49); HEMOGLOBIN 12.9 GM/dL (11.7-16.9); LYMPH % 23.8 % (8-40); MCH 28.8 pg (25.7-33.7); MCHC 33.2 g/dl (32.0-35.9); MEAN PLT VOLUME 9.5 fl (7.5-11.1); MONO % 6.9 % (3.8-10.2); NEUT % 67.3 % (42.8-82.8); PLATELET COUNT 190 10^3/uL (134-434); RBC 4.46 M/mm3 (4.00-5.60); WHITE BLOOD COUNT 6.2 K/mm3 (4.0-10.0)
[2022-05-14 17:26] LABS: INR 0.9 (0.83-1.09); PROTHROMBIN TIME (PATIENT) 10.4 SEC (9.7-13.0)
[2022-05-14 17:29] LABS: ACTIVATED PTT 29.2 SECONDS (25.2-36.5)
[2022-05-14 17:37] LABS: ALBUMIN 3.4 g/dl (3.4-5.0); BLOOD UREA NITROGEN 10.5 mg/dL (7-18); CALCIUM 8.9 mg/dL (8.5-10.1)
[2022-05-14 17:40] LABS: CREATININE 0.8 mg/dL (0.55-1.3)
[2022-05-14 17:42] LABS: BILIRUBIN,TOTAL 0.6 mg/dL (0.2-1); TOT PROT 7.1 g/dl (6.4-8.2)
[2022-05-14 17:50] LABS: LACTIC ACID 2.7 mmol/L (0.4-2.0)
[2022-05-14] MEDS ORDERED: KETOROLAC TROMETHAMINE 15 MG/ML VIAL ONE (18:29)
[2022-05-14] MEDS ORDERED: KETOROLAC TROMETHAMINE 15 MG/ML VIAL IVPUSH ONE (18:29)
[2022-05-14] MEDS ORDERED: SODIUM CHLORIDE 1,000 ML IV STA (19:45)
[2022-05-14] MEDS ORDERED: VANCOMYCIN 1 GM in D5W (PRE-DOCKED) 1,000 MG/250 ML (RESTRICTED TO ID ONLY IVPB ONE (21:24)
[2022-05-14] MEDS ORDERED: CEFEPIME HCL/D5W 1 GM/50 ML BAG IVPB ONE (21:37)
[2022-05-14] MEDS ORDERED: CEFEPIME 1 GM/100 ML BAG IVPB ONE (22:23)
[2022-05-14] MEDS ORDERED: ONDANSETRON 4 MG/2 ML VIAL IVPUSH ONE (22:33)
[2022-05-14] MEDS ORDERED: ONDANSETRON 4 MG/2 ML VIAL ONE (22:33)
[2022-05-15] MEDS ORDERED: LACTATED RINGERS SOLUTION 1,000 ML/1,000 ML INFUS.BAG IV SCH (00:15)
[2022-05-15 03:49] LABS: LACTIC ACID 3.9 mmol/L (0.4-2.0)
[2022-05-15] MEDS ORDERED: VANCOMYCIN HCL 1,500 MG in DEXTROSE 5%-WATER - 250 ML IVPB SCH (04:15)
[2022-05-15] MEDS ORDERED: GABAPENTIN 300 MG CAPSULE PO PRN (04:38)
[2022-05-15] MEDS: INSULIN SLIDING SCALE (NOVOLOG) 1 VIAL SQ SCH ×3 (04:58→17:13)
[2022-05-15 06:32] LABS: HEMATOCRIT 37.4 % (35.4-49); HEMOGLOBIN 12.7 GM/dL (11.7-16.9); MCH 29.3 pg (25.7-33.7); MEAN CELL VOLUME 86.1 fl (80-96); PLATELET COUNT 171 10^3/uL (134-434); RBC 4.35 M/mm3 (4.00-5.60); RDW 14.2 % (11.9-15.9); WHITE BLOOD COUNT 5.2 K/mm3 (4.0-10.0)
[2022-05-15 06:42] LABS: BLOOD UREA NITROGEN 9.3 mg/dL (7-18); MAGNESIUM 1.9 mg/dL (1.8-2.4)
[2022-05-15 06:45] LABS: CREATININE 0.7 mg/dL (0.55-1.3); PHOSPHOROUS 3.5 mg/dL (2.5-4.9)
[2022-05-15 06:46] LABS: TOT PROT 6.6 g/dl (6.4-8.2)
[2022-05-15 06:47] LABS: BILIRUBIN,TOTAL 0.6 mg/dL (0.2-1)
[2022-05-15] MEDS ORDERED: glipiZIDE-XL 10 MG TAB.ER.24 (FP) PO SCH (07:38)
[2022-05-15] MEDS ORDERED: CEFEPIME 1 GM in DEXTROSE 5%-WATER - 50 ML IVPB ONE (09:00)
[2022-05-15] MEDS ORDERED: INSULIN (NOVOLOG) ASPART 100 UNITS/ML 10ML VIAL ONE (09:08)
[2022-05-15] MEDS ORDERED: ENOXAPARIN NA (PORCINE) 40 MG/0.4 ML DISP.SYRIN SQ SCH (10:00)
[2022-05-15] MEDS ORDERED: VANCOMYCIN 1 GM/200 ML PREMIX BAG (RESTRICTED TO ID ONLY) IVPB SCH (10:00)
[2022-05-15] MEDS ORDERED: CEFEPIME 2 GM in DEXTROSE 5%-WATER 100 ML IVPB SCH (10:00)
[2022-05-15] MEDS ORDERED: risperiDONE 1 MG TABLET PO SCH (10:00)
[2022-05-15] MEDS ORDERED: ASPIRIN 81 MG CHEWABLE TABLETS PO SCH (10:00)
[2022-05-15] MEDS ORDERED: SACUBITRIL/VALSARTAN 24 MG-26 MG TABLET PO SCH (10:00)
[2022-05-15] MEDS ORDERED: BENZTROPINE MESYLATE 1 MG TABLET PO SCH (10:00)
[2022-05-15] MEDS ORDERED: CEFEPIME HCL/D5W 1 GM/50 ML BAG IVPB ONE (10:00)
[2022-05-15] MEDS ORDERED: ISOSORBIDE MONONITRATE 30 MG TAB.SR.24H (FP) PO SCH (10:00)
[2022-05-15] MEDS ORDERED: amLODIPine BESYLATE 5 MG TABLET (FP) PO SCH (10:00)
[2022-05-15] MEDS ORDERED: metoPROLOL SUCCINATE 25 MG TAB.SR.24H (FP) PO SCH (10:00)
[2022-05-15] MEDS ORDERED: SPIRONOLACTONE 25 MG TABLET PO SCH (10:00)
[2022-05-15] MEDS ORDERED: VALPROATE SODIUM 250 MG/5 ML LIQUID BULK BOTTLE PO SCH (10:00)
[2022-05-15 10:30] VITALS: BMI 38.2
[2022-05-15] MEDS ORDERED: NYSTATIN POWDER 100,000 UNITS/GM - 15 GM TOPICAL POWDER TP SCH (15:00)
[2022-05-15 16:01] VITALS: BP 145/91; PULSE 100; RESP 18; TEMP 97.7
[2022-05-15] MEDS ORDERED: TAMSULOSIN HCL 0.4 MG CAP PO SCH (22:00)
[2022-05-16] MEDS ORDERED: VANCOMYCIN 1 GM/200 ML PREMIX BAG (RESTRICTED TO ID ONLY) IVPB SCH (10:00)
== END 2022-05-15 17:52 | disposition home or self-care (01) | DRG 395 ==
LOC: JER 14:59 → JERBED 23:26 → J8W 05-15 09:40
PROVIDERS: ADMIT Internal Medicine; ATTEND Internal Medicine
DX: K94.00 Colostomy complication, unspecified (principal); Y83.9 Surgical procedure, unspecified as the cause of abnormal reaction of the patient, or of later complication, without mention of misadventure at the time of the procedure; F31.9 Bipolar disorder, unspecified; F91.3 Oppositional defiant disorder; L53.9 Erythematous condition, unspecified; E66.9 Obesity, unspecified; Z68.38 Body mass index [BMI] 38.0-38.9, adult
CPT/HCPCS: 0241U-QW; 36415; 74176-TC; 80053; 82962; 83036; 83605; 83735; 84100; 84484; 85025; 85027; 85610; 85730; 86850; 86870; 86880; 86900; 86901; 86902; 87081; 93005; 93010; 93306-TC; 99285-25

== ENCOUNTER 2023-01-08 04:07 | Observation (INO) | payer OTHER ==
[2023-01-08 04:36] VITALS: BMI 41.3
[2023-01-08 06:26] LABS: VENOUS BASE EXCESS 2.2 mmol/L (-2-2); VENOUS O2 SATURATION 67.7 % (70-80); VENOUS PCO2 50.1 mmHg (38-52); VENOUS PH 7.37 (7.310-7.410)
[2023-01-08 06:27] LABS: BASO % 1.2 % (0-2.0); EOS % 1.9 % (0-4.5); HEMOGLOBIN 13.5 GM/dL (11.7-16.9); LYMPH % 28.4 % (8-40); MCH 27.1 pg (25.7-33.7); MEAN CELL VOLUME 84.6 fl (80-96); MEAN PLT VOLUME 10.3 fl (7.5-11.1); MONO % 6.8 % (3.8-10.2); NEUT % 61.7 % (42.8-82.8); PLATELET COUNT 195 10^3/uL (134-434); RBC 4.97 M/mm3 (4.00-5.60); RDW 14.9 % (11.9-15.9); WHITE BLOOD COUNT 7.5 K/mm3 (4.0-10.0)
[2023-01-08 06:45] LABS: ALBUMIN 3.5 g/dl (3.4-5.0); BLOOD UREA NITROGEN 11.5 mg/dL (7-18)
[2023-01-08] MEDS ORDERED: SODIUM CHLORIDE 0.9% 500 ML INFUS.BAG IV ONE (06:46)
[2023-01-08 06:48] LABS: CREATININE 0.8 mg/dL (0.55-1.3); PHOSPHOROUS 3.1 mg/dL (2.5-4.9)
[2023-01-08 06:50] LABS: BILIRUBIN,TOTAL 0.5 mg/dL (0.2-1); TOT PROT 7.4 g/dl (6.4-8.2)
[2023-01-08 06:52] LABS: INR 0.92 (0.83-1.09); PROTHROMBIN TIME (PATIENT) 10.7 SEC (9.7-13.0)
[2023-01-08 06:54] LABS: ACTIVATED PTT 28.3 SECONDS (25.2-36.5)
[2023-01-08 08:03] LABS: EPI CELLS 2 /uL (0-25.1); HYALINE CASTS 0 /uL (0-3.1); PH,URINE 5.5 (5.0-8.0); URINE APPEARANCE CLEAR; URINE BACTERIA 10 /uL (0-1359); URINE BILIRUBIN NEGATIVE (NEGATIVE); URINE COLOR YELLOW; URINE GLUCOSE (UA) 3+ (NEGATIVE); URINE KETONE NEGATIVE (NEGATIVE); URINE LEUK ESTERASE NEGATIVE (NEGATIVE); URINE NITRITE NEGATIVE (NEGATIVE); URINE PROTEIN 1+ (NEGATIVE); URINE RBC 6 /uL (0-23.9); URINE UROBILINOGEN 0.2 mg/dL (0.2-1.0); URINE WBC 12 /uL (0-25.8)
[2023-01-08] MEDS ORDERED: MECLIZINE HCL 12.5 MG TABLET PO ONE ×2 (08:16→22:59)
[2023-01-08] MEDS ORDERED: MECLIZINE HCL 12.5 MG TABLET ONE (08:36)
[2023-01-08] MEDS ORDERED: ASPIRIN 325 MG TABLET PO ONE (15:59)
[2023-01-08] MEDS ORDERED: NITROGLYCERIN SUBLINGUAL 1/150 0.4 MG TAB SL PRN (16:00)
[2023-01-08] MEDS ORDERED: ASPIRIN 325 MG TABLET ONE (16:06)
[2023-01-08] MEDS ORDERED: NITROGLYCERIN SUBLINGUAL 1/150 0.4 MG TAB ONE (16:10)
[2023-01-08] MEDS: DIVALPROEX SODIUM 500 MG TABLET E.C. PO SCH (21:19)
[2023-01-08] MEDS: APIXABAN 5 MG TABLET PO SCH (21:19)
[2023-01-08] MEDS: SACUBITRIL/VALSARTAN 49 MG-51 MG TABLET PO SCH (21:19)
[2023-01-08] MEDS: ATORVASTATIN CA 40 MG TABLET (FP) PO SCH (21:19)
[2023-01-08] MEDS: INSULIN SLIDING SCALE (NOVOLOG) 1 VIAL SQ SCH (21:23)
[2023-01-08] MEDS: risperiDONE 1 MG TABLET PO SCH (22:24)
[2023-01-08] MEDS ORDERED: ACETAMINOPHEN 1000 MG/100 ML BAG IVPB ONE (22:58)
[2023-01-09] MEDS: INSULIN SLIDING SCALE (NOVOLOG) 1 VIAL SQ SCH ×4 (06:25→21:10)
[2023-01-09] MEDS ORDERED: INSULIN (LEVEMIR) 100 UNITS/ML UNITS SQ ONE (09:11)
[2023-01-09] MEDS: ISOSORBIDE MONONITRATE 30 MG TAB.SR.24H (FP) PO SCH (09:44)
[2023-01-09] MEDS: ASPIRIN 81 MG CHEWABLE TABLETS PO SCH (09:44)
[2023-01-09] MEDS: NIFEdipine E.R 60 MG TABLET PO SCH (09:44)
[2023-01-09] MEDS: DIVALPROEX SODIUM 500 MG TABLET E.C. PO SCH ×2 (09:45→21:12)
[2023-01-09] MEDS: APIXABAN 5 MG TABLET PO SCH ×2 (09:45→21:12)
[2023-01-09] MEDS: risperiDONE 1 MG TABLET PO SCH ×2 (09:45→21:12)
[2023-01-09] MEDS: metoPROLOL SUCCINATE 25 MG TAB.SR.24H (FP) PO SCH (09:45)
[2023-01-09] MEDS: SACUBITRIL/VALSARTAN 49 MG-51 MG TABLET PO SCH ×2 (09:45→21:12)
[2023-01-09] MEDS: EMPAGLIFLOZIN (JARDIANCE) 10 MG TABLET PO SCH (09:46)
[2023-01-09] MEDS ORDERED: DIVALPROEX SODIUM 500 MG TABLET E.C. PO SCH (10:00)
[2023-01-09] MEDS ORDERED: INSULIN SLIDING SCALE (NOVOLOG) 1 VIAL SQ ONE (11:42)
[2023-01-09] MEDS: INSULIN (LEVEMIR) 100 UNITS/ML UNITS SQ SCH (21:07)
[2023-01-09] MEDS: ATORVASTATIN CA 40 MG TABLET (FP) PO SCH (21:12)
[2023-01-10] MEDS: metFORMIN HCL 500 MG TABLET (FP) PO SCH ×2 (06:27→16:52)
[2023-01-10] MEDS: GLIMEPIRIDE 1 MG TABLET PO SCH (06:28)
[2023-01-10] MEDS: INSULIN SLIDING SCALE (NOVOLOG) 1 VIAL SQ SCH ×4 (06:28→22:10)
[2023-01-10] MEDS: SACUBITRIL/VALSARTAN 49 MG-51 MG TABLET PO SCH ×2 (09:22→22:24)
[2023-01-10] MEDS: ISOSORBIDE MONONITRATE 30 MG TAB.SR.24H (FP) PO SCH (09:22)
[2023-01-10] MEDS: metoPROLOL SUCCINATE 25 MG TAB.SR.24H (FP) PO SCH (09:22)
[2023-01-10] MEDS: APIXABAN 5 MG TABLET PO SCH ×2 (09:22→22:09)
[2023-01-10] MEDS: ASPIRIN 81 MG CHEWABLE TABLETS PO SCH (09:22)
[2023-01-10] MEDS: NIFEdipine E.R 60 MG TABLET PO SCH (09:22)
[2023-01-10] MEDS: risperiDONE 1 MG TABLET PO SCH ×2 (09:23→22:24)
[2023-01-10] MEDS: DIVALPROEX SODIUM 500 MG TABLET E.C. PO SCH ×2 (09:23→22:10)
[2023-01-10] MEDS: EMPAGLIFLOZIN (JARDIANCE) 10 MG TABLET PO SCH (09:23)
[2023-01-10] MEDS: INSULIN (LEVEMIR) 100 UNITS/ML UNITS SQ SCH ×2 (09:24→22:24)
[2023-01-10] MEDS: ATORVASTATIN CA 40 MG TABLET (FP) PO SCH (22:10)
[2023-01-11] MEDS: GLIMEPIRIDE 1 MG TABLET PO SCH (06:42)
[2023-01-11] MEDS: metFORMIN HCL 500 MG TABLET (FP) PO SCH ×2 (06:42→16:32)
[2023-01-11] MEDS: INSULIN SLIDING SCALE (NOVOLOG) 1 VIAL SQ SCH ×4 (06:43→21:24)
[2023-01-11] MEDS: NIFEdipine E.R 60 MG TABLET PO SCH (09:20)
[2023-01-11] MEDS: APIXABAN 5 MG TABLET PO SCH ×2 (09:20→21:23)
[2023-01-11] MEDS: ASPIRIN 81 MG CHEWABLE TABLETS PO SCH (09:20)
[2023-01-11] MEDS: SACUBITRIL/VALSARTAN 49 MG-51 MG TABLET PO SCH ×2 (09:20→21:23)
[2023-01-11] MEDS: risperiDONE 1 MG TABLET PO SCH ×2 (09:20→21:23)
[2023-01-11] MEDS: metoPROLOL SUCCINATE 25 MG TAB.SR.24H (FP) PO SCH (09:20)
[2023-01-11] MEDS: ISOSORBIDE MONONITRATE 30 MG TAB.SR.24H (FP) PO SCH (09:20)
[2023-01-11] MEDS: DIVALPROEX SODIUM 500 MG TABLET E.C. PO SCH ×2 (09:20→21:23)
[2023-01-11] MEDS: EMPAGLIFLOZIN (JARDIANCE) 10 MG TABLET PO SCH (09:20)
[2023-01-11] MEDS: INSULIN (LEVEMIR) 100 UNITS/ML UNITS SQ SCH ×2 (09:26→21:27)
[2023-01-11] MEDS: ATORVASTATIN CA 40 MG TABLET (FP) PO SCH (21:23)
[2023-01-12] MEDS: GLIMEPIRIDE 1 MG TABLET PO SCH (06:25)
[2023-01-12] MEDS: metFORMIN HCL 500 MG TABLET (FP) PO SCH ×2 (06:25→17:37)
[2023-01-12] MEDS: INSULIN SLIDING SCALE (NOVOLOG) 1 VIAL SQ SCH ×4 (06:26→21:44)
[2023-01-12] MEDS: ASPIRIN 81 MG CHEWABLE TABLETS PO SCH (09:21)
[2023-01-12] MEDS: DIVALPROEX SODIUM 500 MG TABLET E.C. PO SCH ×2 (09:21→21:43)
[2023-01-12] MEDS: risperiDONE 1 MG TABLET PO SCH ×2 (09:21→21:43)
[2023-01-12] MEDS: NIFEdipine E.R 60 MG TABLET PO SCH (09:21)
[2023-01-12] MEDS: EMPAGLIFLOZIN (JARDIANCE) 10 MG TABLET PO SCH (09:21)
[2023-01-12] MEDS: APIXABAN 5 MG TABLET PO SCH ×2 (09:21→21:42)
[2023-01-12] MEDS: metoPROLOL SUCCINATE 25 MG TAB.SR.24H (FP) PO SCH (09:21)
[2023-01-12] MEDS: ISOSORBIDE MONONITRATE 30 MG TAB.SR.24H (FP) PO SCH (09:22)
[2023-01-12] MEDS: SACUBITRIL/VALSARTAN 49 MG-51 MG TABLET PO SCH ×2 (09:22→21:42)
[2023-01-12] MEDS: INSULIN (LEVEMIR) 100 UNITS/ML UNITS SQ SCH ×2 (09:22→21:43)
[2023-01-12] MEDS: ATORVASTATIN CA 40 MG TABLET (FP) PO SCH (21:42)
[2023-01-13] MEDS ORDERED: MELATONIN 5 MG TABLETS PO ONE (02:15)
[2023-01-13 06:00] VITALS: RESP 18
[2023-01-13] MEDS: INSULIN SLIDING SCALE (NOVOLOG) 1 VIAL SQ SCH ×2 (06:28→11:44)
[2023-01-13] MEDS: GLIMEPIRIDE 1 MG TABLET PO SCH (06:37)
[2023-01-13] MEDS: metFORMIN HCL 500 MG TABLET (FP) PO SCH (06:37)
[2023-01-13 08:13] VITALS: BP 113/77; PULSE 112; TEMP 98.5
[2023-01-13] MEDS: INSULIN (LEVEMIR) 100 UNITS/ML UNITS SQ SCH (09:46)
[2023-01-13] MEDS: metoPROLOL SUCCINATE 25 MG TAB.SR.24H (FP) PO SCH (09:47)
[2023-01-13] MEDS: SACUBITRIL/VALSARTAN 49 MG-51 MG TABLET PO SCH (09:47)
[2023-01-13] MEDS: ISOSORBIDE MONONITRATE 30 MG TAB.SR.24H (FP) PO SCH (09:47)
[2023-01-13] MEDS: DIVALPROEX SODIUM 500 MG TABLET E.C. PO SCH (09:47)
[2023-01-13] MEDS: APIXABAN 5 MG TABLET PO SCH (09:47)
[2023-01-13] MEDS: NIFEdipine E.R 60 MG TABLET PO SCH (09:47)
[2023-01-13] MEDS: ASPIRIN 81 MG CHEWABLE TABLETS PO SCH (09:47)
[2023-01-13] MEDS: risperiDONE 1 MG TABLET PO SCH (09:48)
[2023-01-13] MEDS: EMPAGLIFLOZIN (JARDIANCE) 10 MG TABLET PO SCH (09:48)
== END 2023-01-13 14:10 | disposition left against medical advice (07) ==
LOC: JER 04:07 → JERBED 12:00 → J4S 16:36
PROVIDERS: ADMIT Internal Medicine; ATTEND Internal Medicine
PROC: 3E033NZ Introduction of Analgesics, Hypnotics, Sedatives into Peripheral Vein, Percutaneous Approach (ICD-10-PCS; principal; 2023-01-08)
PROC: 3E0337Z Introduction of Electrolytic and Water Balance Substance into Peripheral Vein, Percutaneous Approach (ICD-10-PCS; 2023-01-08)
PROC: 3E013VG Introduction of Insulin into Subcutaneous Tissue, Percutaneous Approach (ICD-10-PCS; 2023-01-08)
DX: I48.91 Unspecified atrial fibrillation (principal); R07.89 Other chest pain; R42 Dizziness and giddiness; E78.5 Hyperlipidemia, unspecified; E11.65 Type 2 diabetes mellitus with hyperglycemia; I10 Essential (primary) hypertension; Z86.73 Personal history of transient ischemic attack (TIA), and cerebral infarction without residual deficits; K94.00 Colostomy complication, unspecified; K94.10 Enterostomy complication, unspecified; Z95.5 Presence of coronary angioplasty implant and graft; K56.49 Other impaction of intestine; I25.2 Old myocardial infarction; F31.9 Bipolar disorder, unspecified; F63.81 Intermittent explosive disorder; Z79.4 Long term (current) use of insulin; K63.89 Other specified diseases of intestine; Z88.0 Allergy status to penicillin; Z91.013 Allergy to seafood; Z91.041 Radiographic dye allergy status
CPT/HCPCS: 36415; 70450-TC; 70551-TC; 80053; 81003; 82010; 82550; 82803; 82962; 83735; 84100; 84484; 85025; 85610; 85730; 87077; 87086; 87635; 93005; 93010; 93306-TC; 93880-TC; 96372; 96374; 96375; 97116-GP; 97162-GP; 99285-25; G0378

== ENCOUNTER 2023-01-13 22:22 | Observation (INO) | payer OTHER ==
[2023-01-13 22:36] VITALS: BMI 38.4
[2023-01-13] MEDS ORDERED: ACETAMINOPHEN 1000 MG/100 ML BAG IVPB ONE (22:51)
[2023-01-13] MEDS ORDERED: ACETAMINOPHEN INJECTION 100 ML IVPB ONE (23:05)
[2023-01-13 23:56] LABS: BASO % 0.7 % (0-2.0); EOS % 1.5 % (0-4.5); HEMATOCRIT 43.2 % (35.4-49); HEMOGLOBIN 14.2 GM/dL (11.7-16.9); MCH 27.4 pg (25.7-33.7); MCHC 32.8 g/dl (32.0-35.9); MEAN CELL VOLUME 83.6 fl (80-96); MEAN PLT VOLUME 10.1 fl (7.5-11.1); MONO % 8.6 % (3.8-10.2); NEUT % 63.2 % (42.8-82.8); PLATELET COUNT 216 10^3/uL (134-434); RBC 5.17 M/mm3 (4.00-5.60); RDW 15.2 % (11.9-15.9); WHITE BLOOD COUNT 7.3 K/mm3 (4.0-10.0)
[2023-01-14 00:01] LABS: INR 0.91 (0.83-1.09); PROTHROMBIN TIME (PATIENT) 10.6 SEC (9.7-13.0)
[2023-01-14 00:04] LABS: ACTIVATED PTT 31.5 SECONDS (25.2-36.5)
[2023-01-14 00:21] LABS: CHLORIDE 104 mmol/L (98-107); POTASSIUM 3.9 mmol/L (3.5-5.1); SODIUM 140 mmol/L (136-145)
[2023-01-14 00:24] LABS: ALBUMIN 3.6 g/dl (3.4-5.0); ANION GAP 10 mmol/L (4-13); BLOOD UREA NITROGEN 13.9 mg/dL (7-18); CO2 26 mmol/L (21-32); GLUCOSE,RANDOM 319 mg/dL (74-106)
[2023-01-14 00:27] LABS: CREATININE 0.9 mg/dL (0.55-1.3); SGOT/AST 28 U/L (15-37); SGPT/ALT 38 U/L (13-61)
[2023-01-14 00:29] LABS: BILIRUBIN,TOTAL 0.6 mg/dL (0.2-1); TOT PROT 7.8 g/dl (6.4-8.2)
[2023-01-14 00:30] LABS: ALK PHOS 96 U/L (45-117)
[2023-01-14 00:32] LABS: N-TERMINAL BNP < 5.0 pg/ml (5-125)
[2023-01-14] MEDS ORDERED: DOCUSATE SODIUM 100 MG CAPSULE (FP) PO PRN (02:15)
[2023-01-14 04:09] VITALS: RESP 16
[2023-01-14] MEDS ORDERED: ACETAMINOPHEN 1000 MG/100 ML BAG IVPB PRN (04:30)
[2023-01-14] MEDS: INSULIN SLIDING SCALE (NOVOLOG) 1 VIAL SQ SCH ×2 (06:47→11:57)
[2023-01-14] MEDS ORDERED: metFORMIN HCL 500 MG TABLET (FP) PO SCH (07:00)
[2023-01-14] MEDS ORDERED: INSULIN (LEVEMIR) 100 UNITS/ML UNITS SQ SCH (07:00)
[2023-01-14] MEDS ORDERED: GLIMEPIRIDE 1 MG TABLET PO SCH (07:00)
[2023-01-14] MEDS ORDERED: ASPIRIN 81 MG CHEWABLE TABLETS PO SCH (10:00)
[2023-01-14] MEDS ORDERED: metoPROLOL SUCCINATE 25 MG TAB.SR.24H (FP) PO SCH (10:00)
[2023-01-14] MEDS ORDERED: APIXABAN 5 MG TABLET PO SCH (10:00)
[2023-01-14] MEDS ORDERED: DIVALPROEX SODIUM 500 MG TABLET E.C. PO SCH ×2 (10:00)
[2023-01-14] MEDS ORDERED: NIFEdipine E.R 60 MG TABLET PO SCH (10:00)
[2023-01-14] MEDS ORDERED: ISOSORBIDE MONONITRATE 30 MG TAB.SR.24H (FP) PO SCH (10:00)
[2023-01-14] MEDS ORDERED: SACUBITRIL/VALSARTAN 49 MG-51 MG TABLET PO SCH (10:00)
[2023-01-14] MEDS ORDERED: risperiDONE 1 MG TABLET PO SCH (10:00)
[2023-01-14 14:50] VITALS: BP 115/93; PULSE 93; TEMP 97.8
[2023-01-14] MEDS ORDERED: ATORVASTATIN CA 40 MG TABLET (FP) PO SCH (22:00)
[2023-01-15] MEDS ORDERED: ACETAMINOPHEN 325 MG TABLET (FP) PO PRN (04:00)
== END 2023-01-14 15:26 ==
LOC: JER 22:22 → JERBED 01-14 00:33 → J4S 01-14 02:14
PROVIDERS: ADMIT Internal Medicine; ATTEND Family Medicine
PROC: 3E033NZ Introduction of Analgesics, Hypnotics, Sedatives into Peripheral Vein, Percutaneous Approach (ICD-10-PCS; principal; 2023-01-14)
PROC: 3E013VG Introduction of Insulin into Subcutaneous Tissue, Percutaneous Approach (ICD-10-PCS; 2023-01-14)
DX: I25.10 Atherosclerotic heart disease of native coronary artery without angina pectoris (principal); F31.9 Bipolar disorder, unspecified; E11.9 Type 2 diabetes mellitus without complications; R01.1 Cardiac murmur, unspecified; F63.81 Intermittent explosive disorder; R00.0 Tachycardia, unspecified; K92.9 Disease of digestive system, unspecified; I25.2 Old myocardial infarction; R26.81 Unsteadiness on feet; Z95.5 Presence of coronary angioplasty implant and graft; E78.5 Hyperlipidemia, unspecified; Z91.013 Allergy to seafood; Z88.0 Allergy status to penicillin
CPT/HCPCS: 36415; 71045-TC-FY; 80053; 82962; 83880; 84484; 85025; 85610; 85730; 93005; 93010; 96372; 96374; 99285-25; G0378

== ENCOUNTER 2023-01-18 01:42 | Emergency (ER) | payer OTHER ==
[2023-01-18 01:56] VITALS: BMI 38.4
[2023-01-18 06:20] VITALS: BP 135/95; PULSE 95; RESP 20; TEMP 97.5
== END 2023-01-18 10:28 | disposition home or self-care (01) ==
LOC: JER 01:42
DX: R07.9 Chest pain, unspecified (principal)
CPT/HCPCS: 36415; 71045-TC-FY; 84484; 93005; 93010; 99285-25

== ENCOUNTER 2023-05-14 15:15 | Emergency (ER) | payer OTHER ==
[2023-05-14 16:02] VITALS: BP 154/94; PULSE 99; RESP 20; TEMP 98.2; BMI 33.2
== END 2023-05-14 16:33 | disposition home or self-care (01) ==
LOC: FER 15:15
DX: Z43.3 Encounter for attention to colostomy (principal)
CPT/HCPCS: 99281-25

== ENCOUNTER 2023-06-26 13:28 | Observation (INO) | payer OTHER ==
[2023-06-26] MEDS ORDERED: ACETAMINOPHEN INJECTION 100 ML IVPB ONE (14:24)
[2023-06-26 14:28] LABS: VENOUS BASE EXCESS 0.4 mmol/L (-2-2); VENOUS O2 SATURATION 63.5 % (70-80); VENOUS PCO2 50.6 mmHg (38-52); VENOUS PH 7.343 (7.310-7.410)
[2023-06-26] MEDS: SODIUM CHLORIDE 0.9% 500 ML INFUS.BAG IV ONE (14:29)
[2023-06-26] MEDS: ACETAMINOPHEN 1000 MG/100 ML BAG IVPB ONE (14:30)
[2023-06-26 14:34] LABS: BASO % 0.4 % (0-2.0); EOS % 1.3 % (0-4.5); HEMATOCRIT 38.5 % (35.4-49); HEMOGLOBIN 12.8 GM/dL (11.7-16.9); LYMPH % 24.9 % (8-40); MCH 27.7 pg (25.7-33.7); MCHC 33.1 g/dl (32.0-35.9); MEAN CELL VOLUME 83.6 fl (80-96); MEAN PLT VOLUME 9.9 fl (7.5-11.1); MONO % 7.6 % (3.8-10.2); NEUT % 65.8 % (42.8-82.8); PLATELET COUNT 194 10^3/uL (134-434); RDW 14.9 % (11.9-15.9); WHITE BLOOD COUNT 6.7 K/mm3 (4.0-10.0)
[2023-06-26 14:43] LABS: INR 1.01 (0.83-1.09); PROTHROMBIN TIME (PATIENT) 11.4 SEC (9.7-13.0)
[2023-06-26 14:46] LABS: ACTIVATED PTT 31.1 SECONDS (25.2-36.5)
[2023-06-26 14:51] LABS: POTASSIUM 3.9 mmol/L (3.5-5.1)
[2023-06-26 14:53] LABS: ALBUMIN 3.3 g/dl (3.4-5.0); BLOOD UREA NITROGEN 12.3 mg/dL (7-18); CALCIUM 8.9 mg/dL (8.5-10.1)
[2023-06-26 14:58] LABS: CREATININE 0.8 mg/dL (0.55-1.3)
[2023-06-26 14:59] LABS: BILIRUBIN,TOTAL 0.6 mg/dL (0.2-1); TOT PROT 7.3 g/dl (6.4-8.2)
[2023-06-26 15:02] LABS: N-TERMINAL BNP 15.5 pg/ml (5-125)
[2023-06-26 17:01] LABS: EPI CELLS 2 /uL (0-25.1); HYALINE CASTS 0 /uL (0-3.1); PH,URINE 5.5 (5.0-8.0); URINE APPEARANCE Error; URINE BACTERIA 0 /uL (0-1359); URINE BILIRUBIN NEGATIVE (NEGATIVE); URINE COLOR YELLOW; URINE GLUCOSE (UA) 3+ (NEGATIVE); URINE KETONE NEGATIVE (NEGATIVE); URINE LEUK ESTERASE NEGATIVE (NEGATIVE); URINE NITRITE NEGATIVE (NEGATIVE); URINE PROTEIN 1+ (NEGATIVE); URINE RBC 7 /uL (0-23.9); URINE UROBILINOGEN 0.2 mg/dL (0.2-1.0); URINE WBC 3 /uL (0-25.8)
[2023-06-26] MEDS ORDERED: NITROGLYCERIN SUBLINGUAL 1/150 0.4 MG TAB SL PRN (18:17)
[2023-06-26] MEDS ORDERED: ISOSORBIDE MONONITRATE 30 MG TAB.SR.24H (FP) PO ONE (18:47)
[2023-06-26] MEDS ORDERED: LIDOCAINE 4% PATCH TP ONE (18:47)
[2023-06-26] MEDS ORDERED: INSULIN (NOVOLOG) ASPART 100 UNITS/ML 10ML VIAL ONE (18:49)
[2023-06-26] MEDS: INSULIN (NOVOLOG) ASPART 100 UNITS/ML 10ML VIAL SQ ONE (19:08)
[2023-06-26] MEDS: ISOSORBIDE MONONITRATE 30 MG TAB.SR.24H (FP) PO SCH (19:08)
[2023-06-26] MEDS: LIDOCAINE 5% TOPICAL PATCH TP SCH (19:08)
[2023-06-26] MEDS ORDERED: PATIENT'S OWN MEDICATION (NON-FORMULARY) (Doxycycline Hyclate [Doxycycline Hyclate] 100 MG PO SCH ×2 (22:00)
[2023-06-26] MEDS ORDERED: VALPROIC ACID PO SCH (22:00)
[2023-06-26 22:42] VITALS: BMI 38.4
[2023-06-26] MEDS: metroNIDAZOLE 250 MG TABLET PO SCH (23:05)
[2023-06-26] MEDS: APIXABAN 5 MG TABLET PO SCH (23:05)
[2023-06-26] MEDS: SACUBITRIL/VALSARTAN 24 MG-26 MG TABLET PO SCH (23:05)
[2023-06-26] MEDS: CARVEDILOL 6.25 MG TABLET (FP) PO SCH (23:05)
[2023-06-26] MEDS: INSULIN ASPART SLIDING SCALE (NOVOLOG) 1 VIAL SQ SCH (23:06)
[2023-06-26] MEDS: TAMSULOSIN HCL 0.4 MG CAP PO SCH (23:06)
[2023-06-26] MEDS: risperiDONE 1 MG TABLET PO SCH (23:06)
[2023-06-26] MEDS: DOXYCYCLINE HYCLATE 100 MG CAPSULE PO SCH (23:06)
[2023-06-26] MEDS: ATORVASTATIN CA 40 MG TABLET (FP) PO SCH (23:06)
[2023-06-26] MEDS: VALPROATE SODIUM 250 MG/5 ML UNIT DOSE CUP PO SCH (23:06)
[2023-06-26] MEDS: LIDOCAINE PATCH REMOVAL MC SCH (23:07)
[2023-06-26] MEDS: INSULIN (LEVEMIR) 100 UNITS/ML UNITS SQ SCH (23:07)
[2023-06-27 08:34] LABS: BASO % 0.3 % (0-2.0); EOS % 2.7 % (0-4.5); HEMATOCRIT 38.2 % (35.4-49); HEMOGLOBIN 12.8 GM/dL (11.7-16.9); LYMPH % 27.7 % (8-40); MCH 28.2 pg (25.7-33.7); MCHC 33.4 g/dl (32.0-35.9); MEAN CELL VOLUME 84.3 fl (80-96); MEAN PLT VOLUME 10.4 fl (7.5-11.1); MONO % 8.4 % (3.8-10.2); NEUT % 60.9 % (42.8-82.8); PLATELET COUNT 190 10^3/uL (134-434); RBC 4.53 M/mm3 (4.00-5.60); RDW 15.4 % (11.9-15.9); WHITE BLOOD COUNT 6.1 K/mm3 (4.0-10.0)
[2023-06-27 08:52] LABS: POTASSIUM 3.9 mmol/L (3.5-5.1)
[2023-06-27 08:54] LABS: CALCIUM 8.6 mg/dL (8.5-10.1)
[2023-06-27 08:55] LABS: BLOOD UREA NITROGEN 10.4 mg/dL (7-18)
[2023-06-27 08:58] LABS: CREATININE 0.6 mg/dL (0.55-1.3)
[2023-06-27] MEDS: BENZTROPINE MESYLATE 1 MG TABLET PO SCH (10:13)
[2023-06-27] MEDS: ACETAMINOPHEN 500 MG TABLET (FP) PO PRN (21:48)
[2023-06-28 08:36] LABS: BASO % 0.4 % (0-2.0); HEMATOCRIT 40.3 % (35.4-49); HEMOGLOBIN 13.2 GM/dL (11.7-16.9); LYMPH % 25.2 % (8-40); MCH 27.6 pg (25.7-33.7); MCHC 32.7 g/dl (32.0-35.9); MEAN CELL VOLUME 84.6 fl (80-96); MEAN PLT VOLUME 9.9 fl (7.5-11.1); MONO % 6.3 % (3.8-10.2); NEUT % 66.1 % (42.8-82.8); PLATELET COUNT 204 10^3/uL (134-434); RBC 4.77 M/mm3 (4.00-5.60); RDW 14.5 % (11.9-15.9); WHITE BLOOD COUNT 6.2 K/mm3 (4.0-10.0)
[2023-06-28 08:58] LABS: POTASSIUM 3.8 mmol/L (3.5-5.1)
[2023-06-28 09:04] LABS: CALCIUM 9.2 mg/dL (8.5-10.1)
[2023-06-28 09:06] LABS: MAGNESIUM 1.6 mg/dL (1.8-2.4)
[2023-06-28 09:08] LABS: CREATININE 0.6 mg/dL (0.55-1.3)
[2023-06-28] MEDS: ASPIRIN COATED 81 MG TABLET.EC PO SCH (13:09)
[2023-06-28] MEDS: POLYETHYLENE GLYCOL (HEALTHYLAX) 3350 17 GM PACKET PO ONE (15:52)
[2023-06-28] MEDS: MAGNESIUM OXIDE 400 MG TABLET (FP) PO ONE (16:14)
[2023-06-28] MEDS: DOCUSATE SODIUM 100 MG CAPSULE (FP) PO SCH (21:11)
[2023-06-29 00:05] VITALS: RESP 18
[2023-06-29 13:25] VITALS: BP 156/97; PULSE 92; TEMP 98.4
== END 2023-06-29 14:22 | disposition home or self-care (01) ==
LOC: JER 13:28 → JERBED 18:04 → J4S 20:40
PROVIDERS: ADMIT Internal Medicine; ATTEND Nurse Practitioner Family
PROC: 3E033NZ Introduction of Analgesics, Hypnotics, Sedatives into Peripheral Vein, Percutaneous Approach (ICD-10-PCS; principal; 2023-06-26)
PROC: 3E013VG Introduction of Insulin into Subcutaneous Tissue, Percutaneous Approach (ICD-10-PCS; 2023-06-26)
PROC: 3E0337Z Introduction of Electrolytic and Water Balance Substance into Peripheral Vein, Percutaneous Approach (ICD-10-PCS; 2023-06-26)
DX: Z93.3 Colostomy status (principal); I25.2 Old myocardial infarction; I25.10 Atherosclerotic heart disease of native coronary artery without angina pectoris; F31.9 Bipolar disorder, unspecified; Z87.891 Personal history of nicotine dependence; E78.5 Hyperlipidemia, unspecified; I10 Essential (primary) hypertension; Z59.00 Homelessness unspecified; Z88.0 Allergy status to penicillin; Z91.013 Allergy to seafood; Z91.041 Radiographic dye allergy status
CPT/HCPCS: 36415; 70450-TC; 71045-TC-FY; 73030-TC-LT-FY; 80048; 80053; 81003; 82550; 82553; 82803; 82962; 83036; 83735; 83880; 84484; 85025; 85610; 85730; 87086; 93005; 93010; 96372; 96374; 97116-GP; 97161-GP; 99285-25; G0378; J0131

== ENCOUNTER 2023-09-13 15:16 | Emergency (ER) | payer OTHER ==
[2023-09-13 16:24] VITALS: BP 121/85; PULSE 106; RESP 20; TEMP 97.8
== END 2023-09-13 16:32 | disposition home or self-care (01) ==
LOC: JER 15:16
DX: K94.03 Colostomy malfunction (principal)
CPT/HCPCS: 99283-25

== ENCOUNTER 2023-10-02 04:21 | Emergency (ER) | payer OTHER ==
[2023-10-02 04:45] VITALS: RESP 19; TEMP 98.2; BMI 37.5
[2023-10-02 07:52] VITALS: BP 168/90; PULSE 82
== END 2023-10-02 07:53 | disposition home or self-care (01) ==
LOC: JER 04:21
DX: R07.89 Other chest pain (principal)
CPT/HCPCS: 93005; 93010; 99283-25

== ENCOUNTER 2024-01-29 15:54 | Emergency (ER) | payer OTHER ==
[2024-01-29 16:21] VITALS: TEMP 98.3; BMI 37.5
[2024-01-29] MEDS ORDERED: ASPIRIN 81 MG CHEWABLE TABLETS ONE (16:24)
[2024-01-29] MEDS: ASPIRIN 81 MG CHEWABLE TABLETS PO ONE (16:28)
[2024-01-29] MEDS ORDERED: ACETAMINOPHEN INJECTION 100 ML ONE (17:04)
[2024-01-29] MEDS ORDERED: LIDOCAINE 4% PATCH TP ONE (17:04)
[2024-01-29] MEDS ORDERED: METHOCARBAMOL 500 MG TABLET ONE (17:04)
[2024-01-29] MEDS: METHOCARBAMOL 500 MG TABLET PO ONE (17:15)
[2024-01-29] MEDS: ACETAMINOPHEN 1000 MG/100 ML BAG IVPB ONE (17:15)
[2024-01-29] MEDS: LIDOCAINE 4% PATCH TP ONE (17:16)
[2024-01-29 17:30] LABS: BASO % 0.7 % (0-2.0); EOS % 2.8 % (0-4.5); HEMATOCRIT 42.4 % (35.4-49); HEMOGLOBIN 14.1 GM/dL (11.7-16.9); LYMPH % 27.1 % (8-40); MCH 28.8 pg (25.7-33.7); MCHC 33.3 g/dl (32.0-35.9); MEAN CELL VOLUME 86.6 fl (80-96); MEAN PLT VOLUME 9.9 fl (7.5-11.1); MONO % 6.4 % (3.8-10.2); PLATELET COUNT 201 10^3/uL (134-434); RBC 4.89 M/mm3 (4.00-5.60); RDW 14.2 % (11.9-15.9)
[2024-01-29 17:47] LABS: POTASSIUM 4.1 mmol/L (3.5-5.1)
[2024-01-29 17:49] LABS: CALCIUM 9.5 mg/dL (8.5-10.1)
[2024-01-29 17:50] LABS: ALBUMIN 3.8 g/dl (3.4-5.0); BLOOD UREA NITROGEN 17.4 mg/dL (7-18)
[2024-01-29 17:53] LABS: ACTIVATED PTT 29.8 SECONDS (25.2-36.5); CREATININE 0.6 mg/dL (0.55-1.3); INR 0.9 (0.83-1.09); PROTHROMBIN TIME (PATIENT) 10.4 SEC (9.7-13.0)
[2024-01-29 17:54] LABS: BILIRUBIN,TOTAL 1.1 mg/dL (0.2-1)
[2024-01-29 17:55] LABS: TOT PROT 7.4 g/dl (6.4-8.2)
[2024-01-29 17:58] LABS: N-TERMINAL BNP 43.6 pg/ml (5-125)
[2024-01-29] MEDS ORDERED: MAGNESIUM OXIDE 400 MG TABLET (FP) ONE (18:17)
[2024-01-29] MEDS: MAGNESIUM OXIDE 400 MG TABLET (FP) PO ONE (18:19)
[2024-01-29 18:44] VITALS: BP 121/105; PULSE 123; RESP 22
== END 2024-01-29 19:00 | disposition left against medical advice (07) ==
LOC: JER 15:54
PROC: 3E033NZ Introduction of Analgesics, Hypnotics, Sedatives into Peripheral Vein, Percutaneous Approach (ICD-10-PCS; principal; 2024-01-29)
DX: S80.812A Abrasion, left lower leg, initial encounter (principal); M25.512 Pain in left shoulder; M54.50 Low back pain, unspecified; R07.9 Chest pain, unspecified; M25.561 Pain in right knee; M25.562 Pain in left knee; W01.0XXA Fall on same level from slipping, tripping and stumbling without subsequent striking against object, initial encounter
CPT/HCPCS: 36415; 71045-TC-FY; 73562-TC-LT-FY; 73562-TC-RT-FY; 80053; 83735; 83880; 84484; 85025; 85610; 85730; 86850; 86900; 86901; 93005; 93010; 99285-25; J0131

== ENCOUNTER 2024-02-17 15:54 | Emergency (ER) | payer OTHER ==
[2024-02-17 16:40] VITALS: BP 160/100; PULSE 90; RESP 20; TEMP 97.3; BMI 35.4
== END 2024-02-17 16:28 | disposition home or self-care (01) ==
LOC: FER 15:54
DX: K94.03 Colostomy malfunction (principal)
CPT/HCPCS: 99283-25

== ENCOUNTER 2024-03-31 10:44 | Emergency (ER) | payer OTHER ==
[2024-03-31 11:40] VITALS: BP 165/114; PULSE 84; RESP 17; TEMP 98; BMI 37.5
== END 2024-03-31 13:08 | disposition home or self-care (01) ==
LOC: JER 10:44
DX: K94.03 Colostomy malfunction (principal); I10 Essential (primary) hypertension
CPT/HCPCS: 99283-25

== ENCOUNTER 2024-05-06 08:36 | Emergency (ER) | payer OTHER ==
[2024-05-06 08:46] VITALS: BP 183/106; PULSE 100; RESP 18; TEMP 98.7; BMI 35.4
[2024-05-06] MEDS: NYSTATIN 100,000 UNIT/GM TOPICAL CREAM 15 GM TUBE TP ONE (10:16)
== END 2024-05-06 10:40 | disposition home or self-care (01) ==
LOC: JER 08:36
DX: K94.03 Colostomy malfunction (principal)
CPT/HCPCS: 99283-25